=== PATIENT | male | born 1965 | race Caucasian/White ===

== ENCOUNTER 2018-05-28 21:07 | Inpatient (IN) ==
[2018-05-28 21:44] LABS: Basophils # 0.3 10*3/uL (0.0-0.2); Basophils % 1.2 % (0.0-0.8); Eosinophils # 0.6 10*3/uL (0.0-0.87); Eosinophils % 2.5 % (0.00-10.9); Hematocrit 52.3 VOL% (42.0-52.0); Hemoglobin 16.9 GM/DL (14.0-18.0); Immature Granulocytes % 0.6 %; Immature Granulocytes Absolute 0.14 #; Lymphocytes # 3.4 10*3/uL (1.4-4.0); Lymphocytes % 15.2 % (21.2-54.2); Mean Corpuscular HGB Conc 32.3 GM/DL (32-36); Mean Corpuscular Hemoglobin 29 PG (27-34); Mean Corpuscular Volume 89.1 FL (87-102); Monocytes % 4.7 % (1.7-12.7); Neutrophils # 16.9 10*3/uL (1.4-7.4); Neutrophils % 75.8 % (38.7-73.9); Red Blood Count 5.87 MC/CUMM (3.8-5.5); Red Cell Distribution Width 19.6 % (9.3-17.3); White Blood Count 22.4 T/CUMM (4-12)
[2018-05-28 21:50] LABS: Platelet Count 1210 T/CUMM (130-400)
[2018-05-28 21:59] LABS: INR 1.1; PT Patient Result 11.7 SECS; Partial Thromboplastin Time 35.5 SECS (0-40)
[2018-05-28 22:08] LABS: Eosinophils 1 % (0-10); Lymphocytes 16 % (20-55); Platelet Estimate Increased; Segmented Neutrophils 80 % (50-85); Total Cells Counted 100
[2018-05-28 22:11] LABS: Albumin 3.3 G/DL (3.4-5.0); Bilirubin,Total 0.4 MG/DL (0.2-1.0); Calcium 9.4 MG/DL (8.5-10.1); Potassium 3.9 MMOL/L (3.5-5.1); Total Protein 8.1 G/DL (6.4-8.3)
[2018-05-28] MEDS ORDERED: ASPIRIN 325 MG TABLET PO STA (22:19)
[2018-05-28] MEDS ORDERED: MORPHINE 4 MG/1 ML VIAL IV PRN (22:54)
[2018-05-28] MEDS ORDERED: ONDANSETRON 4 MG/2 ML VIAL IV PRN (22:54)
[2018-05-28] MEDS ORDERED: ACETAMINOPHEN 325 MG TABLET PO PRN (22:54)
[2018-05-28] MEDS ORDERED: NICOTINE 21 MG/24 HR PATCH TRANSDERM PRN (22:54)
[2018-05-28] MEDS ORDERED: diphenhydrAMINE CAP 25 MG CAPSULE PO PRN (22:54)
[2018-05-28] MEDS ORDERED: SODIUM CHLORIDE 0.9% 1,000 ML IV SCH (23:00)
[2018-05-29 00:13] LABS: Risk Ratio 7.8; Thyroid Stimulating Hormone 2.86 uIU/ml (0.358-3.74); VLDL CHOLESTEROL 32.6 MG/DL
[2018-05-29 00:44] LABS: Apearance,Urine CLEAR (Clear); Bilirubin,Urine Negative (Negative); Blood, Urine Negative (Negative); Glucose,Urine (UA) Negative (Negative); Ketones,Urine 5 mg/dL (Negative); Mucus,Urine Occasional /LPF (Occasional); Nitrite,Urine Negative (Negative); Protein,Urine Negative; RBC,Urine 1 /HPF (0-4); Urine Color Yellow (Yellow); Urine Specific Gravity 1.024 (1.001-1.035); Urine Urobilinogen < 2.0 EU/DL (0.2-1.0); WBC,Urine 1 /HPF (0-6)
[2018-05-29 02:07] LABS: Barbiturates Screen,Urine Negative (Negative); Benzodiazepines Screen,Urine Negative (Negative); Cannabinoid Screen,Urine Negative (Negative); Opiate Screen,Urine Negative (Negative); Phencyclidine Screen,Urine Negative (Negative)
[2018-05-29 05:07] LABS: Basophils # 0.2 10*3/uL (0.0-0.2); Basophils % 0.9 % (0.0-0.8); Eosinophils # 0.7 10*3/uL (0.0-0.87); Hematocrit 46.9 VOL% (42.0-52.0); Hemoglobin 14.8 GM/DL (14.0-18.0); Immature Granulocytes % 0.8 %; Immature Granulocytes Absolute 0.19 #; Lymphocytes # 3.4 10*3/uL (1.4-4.0); Lymphocytes % 14.7 % (21.2-54.2); Mean Corpuscular HGB Conc 31.6 GM/DL (32-36); Mean Corpuscular Hemoglobin 29 PG (27-34); Mean Corpuscular Volume 90.4 FL (87-102); Mean Platelet Volume 10.6 FL (9.6-12.0); Monocytes # 1.2 10*3/uL (0.11-0.8); Monocytes % 5.2 % (1.7-12.7); Neutrophils # 17.6 10*3/uL (1.4-7.4); Neutrophils % 75.4 % (38.7-73.9); Red Blood Count 5.19 MC/CUMM (3.8-5.5); Red Cell Distribution Width 19.3 % (9.3-17.3); White Blood Count 23.4 T/CUMM (4-12)
[2018-05-29 05:17] LABS: Platelet Count 1235 T/CUMM (130-400)
[2018-05-29 05:22] LABS: Albumin 2.9 G/DL (3.4-5.0); Bilirubin,Total 0.6 MG/DL (0.2-1.0); Calcium 8.8 MG/DL (8.5-10.1); Osmolality,Calculated 282.1 MOS/KG (273-304); Potassium 3.7 MMOL/L (3.5-5.1); Total Protein 7.3 G/DL (6.4-8.3)
[2018-05-29 06:03] LABS: Eosinophils 2 % (0-10); Lymphocytes 11 % (20-55); Platelet Estimate Increased; Polychromasia Few; Segmented Neutrophils 84 % (50-85); Total Cells Counted 100
[2018-05-29] MEDS ORDERED: ATORVASTATIN 40 MG TABLET PO SCH (09:00)
[2018-05-29] MEDS: PANTOPRAZOLE 40 MG TABLET PO SCH (09:46)
[2018-05-29] MEDS: ASPIRIN 325 MG TABLET PO SCH (09:46)
[2018-05-29] MEDS: ENOXAPARIN 40 MG/0.4 ML SYRINGE SUBCUT SCH (09:46)
[2018-05-29] MEDS: FUROSEMIDE 40 MG TABLET PO SCH (16:32)
[2018-05-29] MEDS: FUROSEMIDE 20 MG TABLET PO SCH (16:32)
[2018-05-29] MEDS: CLOPIDOGREL 75 MG TABLET PO SCH (16:32)
[2018-05-29] MEDS: LOSARTAN 25 MG TABLET PO SCH (16:32)
[2018-05-29] MEDS: cefTRIAXone 2,000 MG in SYRINGE 1 EACH IV SCH (16:37)
[2018-05-29] MEDS ORDERED: LISINOPRIL 2.5 MG TABLET PO SCH (21:00)
[2018-05-29] MEDS ORDERED: CARVEDILOL 6.25 MG TABLET PO SCH (21:00)
[2018-05-29] MEDS: POTASSIUM CHLORIDE 20 MEQ TABLET PO SCH (21:37)
[2018-05-30 04:25] LABS: Basophils # 0.2 10*3/uL (0.0-0.2); Eosinophils # 0.7 10*3/uL (0.0-0.87); Eosinophils % 3.3 % (0.00-10.9); Hematocrit 49.1 VOL% (42.0-52.0); Hemoglobin 15.8 GM/DL (14.0-18.0); Immature Granulocytes % 0.6 %; Immature Granulocytes Absolute 0.14 #; Lymphocytes % 13.7 % (21.2-54.2); Mean Corpuscular HGB Conc 32.2 GM/DL (32-36); Mean Corpuscular Hemoglobin 28 PG (27-34); Mean Corpuscular Volume 88.3 FL (87-102); Mean Platelet Volume 10.3 FL (9.6-12.0); Monocytes # 0.9 10*3/uL (0.11-0.8); Monocytes % 4.1 % (1.7-12.7); Neutrophils # 17.1 10*3/uL (1.4-7.4); Neutrophils % 77.3 % (38.7-73.9); Red Blood Count 5.56 MC/CUMM (3.8-5.5); Red Cell Distribution Width 19.2 % (9.3-17.3); White Blood Count 22.1 T/CUMM (4-12)
[2018-05-30 04:33] LABS: Platelet Count 1208 T/CUMM (130-400)
[2018-05-30 04:50] LABS: Bilirubin,Total 0.9 MG/DL (0.2-1.0); Calcium 8.6 MG/DL (8.5-10.1); Osmolality,Calculated 277.4 MOS/KG (273-304); Potassium 3.8 MMOL/L (3.5-5.1); Total Protein 7.3 G/DL (6.4-8.3)
[2018-05-30 05:55] LABS: Hypochromasia 1+; Target Cells Slight
[2018-05-30 05:56] LABS: Howell-Jolly Bodies Slight; Microcytosis 1+; Platelet Estimate Increased
[2018-05-30] MEDS: ATORVASTATIN 40 MG TABLET PO SCH (09:50)
[2018-05-30] MEDS: CLOPIDOGREL 75 MG TABLET PO SCH (09:50)
[2018-05-30] MEDS: POTASSIUM CHLORIDE 20 MEQ TABLET PO SCH ×2 (09:50→21:18)
[2018-05-30] MEDS: PANTOPRAZOLE 40 MG TABLET PO SCH (09:50)
[2018-05-30] MEDS: FUROSEMIDE 40 MG TABLET PO SCH (09:50)
[2018-05-30] MEDS: LOSARTAN 25 MG TABLET PO SCH (09:51)
[2018-05-30] MEDS: ENOXAPARIN 40 MG/0.4 ML SYRINGE SUBCUT SCH (09:51)
[2018-05-30] MEDS: ASPIRIN 325 MG TABLET PO SCH (09:51)
[2018-05-30] MEDS: FUROSEMIDE 20 MG TABLET PO SCH (09:55)
[2018-05-30] MEDS: cefTRIAXone 2,000 MG in SYRINGE 1 EACH IV SCH (14:30)
[2018-05-31 05:10] LABS: Basophils # 0.2 10*3/uL (0.0-0.2); Eosinophils # 0.7 10*3/uL (0.0-0.87); Eosinophils % 2.8 % (0.00-10.9); Hematocrit 47.9 VOL% (42.0-52.0); Hemoglobin 15.5 GM/DL (14.0-18.0); Immature Granulocytes % 0.6 %; Immature Granulocytes Absolute 0.15 #; Lymphocytes # 3.2 10*3/uL (1.4-4.0); Lymphocytes % 13.8 % (21.2-54.2); Mean Corpuscular HGB Conc 32.4 GM/DL (32-36); Mean Corpuscular Hemoglobin 29 PG (27-34); Mean Corpuscular Volume 89.4 FL (87-102); Mean Platelet Volume 10.5 FL (9.6-12.0); Monocytes # 1.2 10*3/uL (0.11-0.8); Monocytes % 5.2 % (1.7-12.7); Neutrophils # 17.8 10*3/uL (1.4-7.4); Neutrophils % 76.6 % (38.7-73.9); Red Blood Count 5.36 MC/CUMM (3.8-5.5); Red Cell Distribution Width 19.4 % (9.3-17.3); White Blood Count 23.3 T/CUMM (4-12)
[2018-05-31 05:24] LABS: Platelet Count 1167 T/CUMM (130-400)
[2018-05-31 05:42] LABS: Alanine Aminotransferase 35 U/L (16-61); Albumin 2.8 G/DL (3.4-5.0); Alkaline Phosphatase 128 U/L (45-117); Aspartate Amino Transferase 22 U/L (0-37); Bilirubin,Total < 0.39 MG/DL (0.2-1.0); Blood Urea Nitrogen 14 MG/DL (7-18); Calcium 8.4 MG/DL (8.5-10.1); Glucose 84 MG/DL (74-106); Osmolality,Calculated 276.5 MOS/KG (273-304); Potassium 3.6 MMOL/L (3.5-5.1); Sodium 139 MMOL/L (136-145); Total Protein 7.3 G/DL (6.4-8.3)
[2018-05-31 06:16] LABS: Anisocytosis 1+; Band Neutrophils 4 % (0-10); Eosinophils 1 % (0-10); Lymphocytes 14 % (20-55); Macrocytosis 1+; Platelet Estimate Increased; Segmented Neutrophils 78 % (50-85); Total Cells Counted 100
[2018-05-31] MEDS: POTASSIUM CHLORIDE 20 MEQ TABLET PO SCH ×2 (08:53→22:31)
[2018-05-31] MEDS: FUROSEMIDE 40 MG TABLET PO SCH (08:53)
[2018-05-31] MEDS: LOSARTAN 25 MG TABLET PO SCH (08:53)
[2018-05-31] MEDS: ATORVASTATIN 40 MG TABLET PO SCH (08:53)
[2018-05-31] MEDS: PANTOPRAZOLE 40 MG TABLET PO SCH (08:53)
[2018-05-31] MEDS ORDERED: CLOPIDOGREL 300 MG TABLET PO ONE (10:36)
[2018-05-31] MEDS: cefTRIAXone 2,000 MG in SYRINGE 1 EACH IV SCH (16:41)
[2018-06-01 04:40] LABS: Basophils # 0.3 10*3/uL (0.0-0.2); Basophils % 1.1 % (0.0-0.8); Eosinophils # 0.7 10*3/uL (0.0-0.87); Hematocrit 49.5 VOL% (42.0-52.0); Immature Granulocytes % 0.6 %; Immature Granulocytes Absolute 0.13 #; Lymphocytes # 3.5 10*3/uL (1.4-4.0); Mean Corpuscular HGB Conc 32.3 GM/DL (32-36); Mean Corpuscular Hemoglobin 29 PG (27-34); Mean Corpuscular Volume 88.1 FL (87-102); Mean Platelet Volume 10.2 FL (9.6-12.0); Monocytes # 1.2 10*3/uL (0.11-0.8); Monocytes % 5.5 % (1.7-12.7); Neutrophils # 16.4 10*3/uL (1.4-7.4); Neutrophils % 73.8 % (38.7-73.9); Red Blood Count 5.62 MC/CUMM (3.8-5.5); Red Cell Distribution Width 19.7 % (9.3-17.3); White Blood Count 22.2 T/CUMM (4-12)
[2018-06-01 04:45] LABS: Platelet Count 1258 T/CUMM (130-400)
[2018-06-01 04:55] LABS: Bilirubin,Total 0.7 MG/DL (0.2-1.0); Calcium 8.6 MG/DL (8.5-10.1); Osmolality,Calculated 277.4 MOS/KG (273-304); Potassium 3.8 MMOL/L (3.5-5.1); Total Protein 7.5 G/DL (6.4-8.3)
[2018-06-01 05:08] LABS: Hypochromasia 1+; Platelet Estimate Increased; Target Cells 2+
[2018-06-01] MEDS: ATORVASTATIN 40 MG TABLET PO SCH (08:55)
[2018-06-01] MEDS: POTASSIUM CHLORIDE 20 MEQ TABLET PO SCH ×2 (08:55→20:26)
[2018-06-01] MEDS: LOSARTAN 25 MG TABLET PO SCH (08:55)
[2018-06-01] MEDS: PANTOPRAZOLE 40 MG TABLET PO SCH (08:55)
[2018-06-01] MEDS: FUROSEMIDE 40 MG TABLET PO SCH ×2 (08:55→10:11)
[2018-06-01] MEDS ORDERED: LIDOCAINE 1% 20 ML VIAL ONE (10:56)
[2018-06-01] MEDS ORDERED: HEPARIN 5,000 UNIT/1 ML VIAL ONE (10:56)
[2018-06-01] MEDS ORDERED: ONDANSETRON 4 MG/2 ML VIAL IV PRN (13:12)
[2018-06-01] MEDS ORDERED: HYDROmorphone 2 MG/1 ML VIAL IV PRN (13:12)
[2018-06-01] MEDS ORDERED: oxyCODONE/ACETAMINOPHEN 5-325 MG TABLET PO PRN (13:12)
[2018-06-01] MEDS ORDERED: DEXTROSE 50% 25 GM/50 ML SYRINGE IV PRN (13:12)
[2018-06-01] MEDS ORDERED: NALOXONE 0.4 MG/ML VIAL IV PRN (13:12)
[2018-06-01] MEDS ORDERED: PROMETHAZINE 25 MG/1 ML VIAL IM PRN (13:12)
[2018-06-01] MEDS ORDERED: GLUCAGON 1 MG VIAL IM PRN (13:12)
[2018-06-01] MEDS ORDERED: MIDAZOLAM 2 MG/2 ML VIAL ONE (13:30)
[2018-06-01] MEDS ORDERED: PROPOFOL 200 MG/20 ML VIAL IV ONE (13:30)
[2018-06-01] MEDS ORDERED: ASPIRIN EC 81 MG TABLET PO SCH (13:30)
[2018-06-01] MEDS ORDERED: fentaNYL 100 MCG/2 ML VIAL ONE (13:30)
[2018-06-01] MEDS ORDERED: ETOMIDATE 40 MG/20 ML VIAL IV ONE (13:30)
[2018-06-01] MEDS ORDERED: ePHEDrine 50 MG/ML AMP ONE (13:31)
[2018-06-01] MEDS ORDERED: ONDANSETRON 4 MG/2 ML VIAL ONE (13:31)
[2018-06-01] MEDS ORDERED: ROCURONIUM 100 MG/10 ML VIAL IV ONE (13:31)
[2018-06-01] MEDS ORDERED: PROTAMINE SULFATE 50 MG/5 ML VIAL IV ONE (13:32)
[2018-06-01] MEDS ORDERED: HEPARIN 10,000 UNIT/10 ML VIAL ONE (13:32)
[2018-06-01] MEDS ORDERED: NEOSTIGMINE 10 MG/10 ML VIAL ONE (13:32)
[2018-06-01] MEDS ORDERED: GLYCOPYRROLATE 0.4 MG/2 ML VIAL ONE (13:32)
[2018-06-01] MEDS ORDERED: SEVOFLURANE 1 UNIT/15 MINUTE INH ONE (13:33)
[2018-06-01] MEDS: PHENYLEPHRINE DRIP 40 MG/250 ML PREMIX IV SCH (13:53)
[2018-06-01] MEDS: NITROPRUSSIDE 100 MG in DEXTROSE 5% 250 ML IV SCH (15:53)
[2018-06-01] MEDS: CLOPIDOGREL 75 MG TABLET PO SCH (15:53)
[2018-06-01] MEDS: ASPIRIN EC 81 MG TABLET PO SCH (15:53)
[2018-06-01] MEDS: LACTATED RINGERS 1,000 ML IV SCH (15:53)
[2018-06-01] MEDS: cefTRIAXone 2,000 MG in SYRINGE 1 EACH IV SCH (15:54)
[2018-06-01] MEDS: oxyCODONE/ACETAMINOPHEN 5-325 MG TABLET PO PRN (17:32)
[2018-06-01] MEDS: HYDROmorphone 2 MG/1 ML VIAL IV PRN (18:00)
[2018-06-02] MEDS: HYDROmorphone 2 MG/1 ML VIAL IV PRN ×3 (00:10→22:31)
[2018-06-02 04:46] LABS: Basophils # 0.2 10*3/uL (0.0-0.2); Basophils % 0.6 % (0.0-0.8); Eosinophils # 0.1 10*3/uL (0.0-0.87); Eosinophils % 0.2 % (0.00-10.9); Hematocrit 46.8 VOL% (42.0-52.0); Hemoglobin 15.2 GM/DL (14.0-18.0); Immature Granulocytes % 0.8 %; Immature Granulocytes Absolute 0.25 #; Lymphocytes # 1.5 10*3/uL (1.4-4.0); Lymphocytes % 5.2 % (21.2-54.2); Mean Corpuscular HGB Conc 32.5 GM/DL (32-36); Mean Corpuscular Hemoglobin 29 PG (27-34); Mean Corpuscular Volume 89.5 FL (87-102); Monocytes # 1.5 10*3/uL (0.11-0.8); Monocytes % 5.2 % (1.7-12.7); Neutrophils # 25.9 10*3/uL (1.4-7.4); Red Blood Count 5.23 MC/CUMM (3.8-5.5); Red Cell Distribution Width 19.7 % (9.3-17.3); White Blood Count 29.5 T/CUMM (4-12)
[2018-06-02 04:48] LABS: Platelet Count 1135 T/CUMM (130-400)
[2018-06-02 05:12] LABS: Lymphocytes 2 % (20-55); Segmented Neutrophils 95 % (50-85); Total Cells Counted 100
[2018-06-02 05:13] LABS: Hypochromasia Slight; Platelet Estimate Increased; Polychromasia Few
[2018-06-02 05:17] LABS: Albumin 2.9 G/DL (3.4-5.0); Bilirubin,Total 0.8 MG/DL (0.2-1.0); Calcium 8.6 MG/DL (8.5-10.1); Osmolality,Calculated 273.7 MOS/KG (273-304); Potassium 4.3 MMOL/L (3.5-5.1); Total Protein 7.2 G/DL (6.4-8.3)
[2018-06-02] MEDS ORDERED: HEPARIN 5,000 UNIT/1 ML VIAL ONE (07:53)
[2018-06-02] MEDS ORDERED: ceFAZolin 1,000 MG in SYRINGE 1 EACH IV ONE (08:00)
[2018-06-02] MEDS ORDERED: SEVOFLURANE 1 UNIT/15 MINUTE INH ONE (09:44)
[2018-06-02] MEDS ORDERED: PROPOFOL 200 MG/20 ML VIAL IV ONE (09:44)
[2018-06-02] MEDS ORDERED: MIDAZOLAM 2 MG/2 ML VIAL ONE (09:45)
[2018-06-02] MEDS ORDERED: ONDANSETRON 4 MG/2 ML VIAL ONE (09:45)
[2018-06-02] MEDS ORDERED: ROCURONIUM 100 MG/10 ML VIAL IV ONE (09:45)
[2018-06-02] MEDS ORDERED: SUCCINYLCHOLINE 200 MG/10 ML VIAL ONE (09:45)
[2018-06-02] MEDS ORDERED: DEXAMETHASONE 20 MG/5 ML VIAL ONE (09:45)
[2018-06-02] MEDS ORDERED: ETOMIDATE 40 MG/20 ML VIAL IV ONE (09:45)
[2018-06-02] MEDS ORDERED: PHENYLEPHRINE 1 MG/10 ML SYRINGE IV ONE (09:45)
[2018-06-02] MEDS ORDERED: MAGNESIUM SULF RIDER 2 GM in PREMIX 1 EACH IV PRN (11:02)
[2018-06-02] MEDS ORDERED: MAGNESIUM SULF RIDER 4 GM in PREMIX 1 EACH IV PRN (11:02)
[2018-06-02] MEDS: ASPIRIN EC 81 MG TABLET PO SCH (11:06)
[2018-06-02] MEDS: ATORVASTATIN 40 MG TABLET PO SCH (11:19)
[2018-06-02] MEDS: PANTOPRAZOLE 40 MG TABLET PO SCH (11:19)
[2018-06-02] MEDS: CLOPIDOGREL 75 MG TABLET PO SCH (11:19)
[2018-06-02] MEDS: POTASSIUM CHLORIDE 20 MEQ TABLET PO SCH ×2 (11:19→20:07)
[2018-06-02] MEDS: FUROSEMIDE 40 MG TABLET PO SCH (11:20)
[2018-06-02] MEDS: LOSARTAN 25 MG TABLET PO SCH (11:20)
[2018-06-02] MEDS: LACTATED RINGERS 1,000 ML IV SCH ×2 (13:17)
[2018-06-02] MEDS: PHENYLEPHRINE DRIP 40 MG/250 ML PREMIX IV SCH (13:44)
[2018-06-02] MEDS: NITROPRUSSIDE 100 MG in DEXTROSE 5% 250 ML IV SCH (13:45)
[2018-06-02 16:29] LABS: Apearance,Urine CLEAR (Clear); Bilirubin,Urine Negative (Negative); Blood, Urine Negative (Negative); Glucose,Urine (UA) Negative (Negative); Ketones,Urine 5 mg/dL (Negative); Nitrite,Urine Negative (Negative); Protein,Urine Negative; RBC,Urine <1 /HPF (0-4); Urine Color Straw (Yellow); Urine Specific Gravity 1.005 (1.001-1.035); Urine Urobilinogen < 2.0 EU/DL (0.2-1.0); WBC,Urine <1 /HPF (0-6)
[2018-06-03 04:22] LABS: Basophils # 0.1 10*3/uL (0.0-0.2); Basophils % 0.4 % (0.0-0.8); Hematocrit 44.9 VOL% (42.0-52.0); Hemoglobin 14.7 GM/DL (14.0-18.0); Immature Granulocytes Absolute 0.36 #; Lymphocytes # 1.1 10*3/uL (1.4-4.0); Lymphocytes % 3.2 % (21.2-54.2); Mean Corpuscular HGB Conc 32.7 GM/DL (32-36); Mean Corpuscular Hemoglobin 29 PG (27-34); Mean Corpuscular Volume 89.3 FL (87-102); Mean Platelet Volume 10.2 FL (9.6-12.0); Monocytes # 1.4 10*3/uL (0.11-0.8); Neutrophils # 32.8 10*3/uL (1.4-7.4); Neutrophils % 91.4 % (38.7-73.9); Red Blood Count 5.03 MC/CUMM (3.8-5.5); Red Cell Distribution Width 19.1 % (9.3-17.3); White Blood Count 35.8 T/CUMM (4-12)
[2018-06-03 04:25] LABS: Platelet Count 1131 T/CUMM (130-400)
[2018-06-03 04:47] LABS: Calcium 8.8 MG/DL (8.5-10.1); Osmolality,Calculated 275.5 MOS/KG (273-304); Potassium 4.2 MMOL/L (3.5-5.1)
[2018-06-03 04:55] LABS: Lymphocytes 3 % (20-55); Platelet Estimate Increased; Polychromasia Few; Segmented Neutrophils 95 % (50-85); Total Cells Counted 100
[2018-06-03] MEDS: ATORVASTATIN 40 MG TABLET PO SCH (08:58)
[2018-06-03] MEDS: CLOPIDOGREL 75 MG TABLET PO SCH (08:58)
[2018-06-03] MEDS: ASPIRIN EC 81 MG TABLET PO SCH (08:58)
[2018-06-03] MEDS: POTASSIUM CHLORIDE 20 MEQ TABLET PO SCH ×2 (08:59→20:04)
[2018-06-03] MEDS: LOSARTAN 25 MG TABLET PO SCH (08:59)
[2018-06-03] MEDS: PANTOPRAZOLE 40 MG TABLET PO SCH (08:59)
[2018-06-03] MEDS ORDERED: APIXABAN 5 MG TABLET PO SCH (09:00)
[2018-06-03] MEDS: FUROSEMIDE 40 MG TABLET PO SCH (09:00)
[2018-06-03] MEDS: LACTATED RINGERS 1,000 ML IV SCH (09:27)
[2018-06-03] MEDS: PHENYLEPHRINE DRIP 40 MG/250 ML PREMIX IV SCH (12:42)
[2018-06-03] MEDS: NITROPRUSSIDE 100 MG in DEXTROSE 5% 250 ML IV SCH (12:42)
[2018-06-03] MEDS: oxyCODONE/ACETAMINOPHEN 5-325 MG TABLET PO PRN (20:04)
[2018-06-03] MEDS ORDERED: ATORVASTATIN 40 MG TABLET PO SCH (21:00)
[2018-06-04] MEDS: HYDROmorphone 2 MG/1 ML VIAL IV PRN (00:44)
[2018-06-04 04:36] LABS: Basophils # 0.2 10*3/uL (0.0-0.2); Basophils % 0.6 % (0.0-0.8); Eosinophils # 0.5 10*3/uL (0.0-0.87); Eosinophils % 1.8 % (0.00-10.9); Hemoglobin 14.4 GM/DL (14.0-18.0); Immature Granulocytes % 0.8 %; Immature Granulocytes Absolute 0.22 #; Lymphocytes # 3.3 10*3/uL (1.4-4.0); Lymphocytes % 11.4 % (21.2-54.2); Mean Corpuscular HGB Conc 31.3 GM/DL (32-36); Mean Corpuscular Hemoglobin 28 PG (27-34); Mean Corpuscular Volume 90.6 FL (87-102); Mean Platelet Volume 10.7 FL (9.6-12.0); Monocytes # 1.5 10*3/uL (0.11-0.8); Monocytes % 5.2 % (1.7-12.7); Neutrophils # 23.4 10*3/uL (1.4-7.4); Neutrophils % 80.2 % (38.7-73.9); Red Blood Count 5.08 MC/CUMM (3.8-5.5); Red Cell Distribution Width 19.4 % (9.3-17.3); White Blood Count 29.2 T/CUMM (4-12)
[2018-06-04 04:44] LABS: Platelet Count 1187 T/CUMM (130-400)
[2018-06-04 04:55] LABS: Calcium 8.7 MG/DL (8.5-10.1); Osmolality,Calculated 278.4 MOS/KG (273-304); Potassium 3.7 MMOL/L (3.5-5.1)
[2018-06-04 05:06] LABS: Calcium 8.2 MG/DL (8.5-10.1); Osmolality,Calculated 280.3 MOS/KG (273-304); Potassium 3.6 MMOL/L (3.5-5.1)
[2018-06-04 05:22] LABS: Giant Platelets Few; Hypochromasia 1+; Platelet Estimate Increased
[2018-06-04] MEDS ORDERED: CLOPIDOGREL 75 MG TABLET PO SCH (09:30)
[2018-06-04] MEDS: FUROSEMIDE 40 MG TABLET PO SCH (11:58)
[2018-06-04] MEDS: POTASSIUM CHLORIDE 20 MEQ TABLET PO SCH (11:59)
[2018-06-04] MEDS: LOSARTAN 25 MG TABLET PO SCH (11:59)
[2018-06-04] MEDS: ATORVASTATIN 40 MG TABLET PO SCH (11:59)
[2018-06-04] MEDS: PANTOPRAZOLE 40 MG TABLET PO SCH (11:59)
[2018-06-04] MEDS ORDERED: MAGNESIUM OXIDE 400 MG TABLET PO SCH (12:00)
[2018-06-04] MEDS: ASPIRIN EC 81 MG TABLET PO SCH (12:28)
[2018-06-04 12:51] VITALS: BP 117/72
== END 2018-06-04 15:31 | disposition home or self-care (01) | DRG 38 ==
LOC: N.ED 21:07 → N.EDINP 22:26 → N.TELES 23:45 → N.ICU 06-01 13:35 → N.4E 06-03 13:12
PROVIDERS: ADMIT Internal Medicine; ATTEND Internal Medicine

== ENCOUNTER 2018-06-06 14:20 | Inpatient (IN) ==
[2018-06-06 15:23] LABS: Basophils # 0.2 10*3/uL (0.0-0.2); Basophils % 0.7 % (0.0-0.8); Eosinophils # 0.5 10*3/uL (0.0-0.87); Eosinophils % 1.7 % (0.00-10.9); Hematocrit 48.6 VOL% (42.0-52.0); Hemoglobin 15.8 GM/DL (14.0-18.0); Immature Granulocytes % 0.7 %; Immature Granulocytes Absolute 0.19 #; Lymphocytes # 2.3 10*3/uL (1.4-4.0); Lymphocytes % 7.9 % (21.2-54.2); Mean Corpuscular HGB Conc 32.5 GM/DL (32-36); Mean Corpuscular Hemoglobin 29 PG (27-34); Mean Corpuscular Volume 88.7 FL (87-102); Monocytes # 1.4 10*3/uL (0.11-0.8); Monocytes % 4.7 % (1.7-12.7); Neutrophils # 24.5 10*3/uL (1.4-7.4); Neutrophils % 84.3 % (38.7-73.9); Red Blood Count 5.48 MC/CUMM (3.8-5.5); Red Cell Distribution Width 19.2 % (9.3-17.3)
[2018-06-06 15:28] LABS: Platelet Count 1292 T/CUMM (130-400)
[2018-06-06] MEDS ORDERED: ceFAZolin 2,000 MG in SYRINGE 1 EACH IV ONE (15:29)
[2018-06-06 15:32] LABS: INR 1.1; PT Patient Result 11.8 SECS
[2018-06-06] MEDS ORDERED: HEPARIN 5,000 UNIT/1 ML VIAL ONE (15:40)
[2018-06-06 15:42] LABS: Calcium 9.1 MG/DL (8.5-10.1); Osmolality,Calculated 275.5 MOS/KG (273-304); Potassium 4.2 MMOL/L (3.5-5.1)
[2018-06-06] MEDS ORDERED: GLUCAGON 1 MG VIAL IM PRN (16:54)
[2018-06-06] MEDS ORDERED: NALOXONE 0.4 MG/ML VIAL IV PRN (16:54)
[2018-06-06] MEDS ORDERED: oxyCODONE/ACETAMINOPHEN 5-325 MG TABLET PO PRN ×3 (16:54→16:59)
[2018-06-06] MEDS ORDERED: PROMETHAZINE 25 MG/1 ML VIAL IM PRN (16:54)
[2018-06-06] MEDS ORDERED: ONDANSETRON 4 MG/2 ML VIAL IV PRN ×2 (16:54→17:26)
[2018-06-06] MEDS ORDERED: DEXTROSE 50% 25 GM/50 ML VIAL IV PRN (16:54)
[2018-06-06] MEDS ORDERED: diphenhydrAMINE CAP 25 MG CAPSULE PO PRN (16:59)
[2018-06-06] MEDS ORDERED: NICOTINE 21 MG/24 HR PATCH TRANSDERM PRN (16:59)
[2018-06-06] MEDS ORDERED: PHENYLEPHRINE DRIP 40 MG/250 ML PREMIX IV SCH (17:00)
[2018-06-06] MEDS ORDERED: NITROPRUSSIDE 100 MG in DEXTROSE 5% 250 ML IV SCH (17:00)
[2018-06-06] MEDS: HYDROmorphone 2 MG/1 ML VIAL IV PRN ×3 (17:30→23:16)
[2018-06-06 18:06] LABS: Eosinophils 2 % (0-10); Lymphocytes 6 % (20-55); Platelet Estimate Increased; Segmented Neutrophils 84 % (50-85); Total Cells Counted 100
[2018-06-06] MEDS: LACTATED RINGERS 1,000 ML IV SCH (19:15)
[2018-06-06] MEDS: ATORVASTATIN 40 MG TABLET PO SCH (20:36)
[2018-06-06] MEDS: POTASSIUM CHLORIDE 20 MEQ TABLET PO SCH (20:36)
[2018-06-06] MEDS: MAGNESIUM OXIDE 400 MG TABLET PO SCH (20:37)
[2018-06-06] MEDS ORDERED: PROPOFOL 200 MG/20 ML VIAL IV ONE (21:10)
[2018-06-06] MEDS ORDERED: fentaNYL 100 MCG/2 ML VIAL ONE (21:11)
[2018-06-06] MEDS ORDERED: SEVOFLURANE 1 UNIT/15 MINUTE INH ONE (21:11)
[2018-06-06] MEDS ORDERED: ETOMIDATE 40 MG/20 ML VIAL IV ONE (21:11)
[2018-06-06] MEDS ORDERED: MIDAZOLAM 2 MG/2 ML VIAL ONE (21:11)
[2018-06-06] MEDS ORDERED: DEXAMETHASONE 10 MG/1 ML VIAL ONE (21:12)
[2018-06-06] MEDS ORDERED: SUCCINYLCHOLINE 200 MG/10 ML VIAL ONE (21:12)
[2018-06-07] MEDS: LACTATED RINGERS 1,000 ML IV SCH ×2 (01:00→03:02)
[2018-06-07] MEDS: HYDROmorphone 2 MG/1 ML VIAL IV PRN ×3 (04:54→23:13)
[2018-06-07] MEDS ORDERED: FUROSEMIDE 20 MG TABLET PO SCH (08:00)
[2018-06-07] MEDS: LOSARTAN 25 MG TABLET PO SCH (10:14)
[2018-06-07] MEDS: MAGNESIUM OXIDE 400 MG TABLET PO SCH ×2 (10:14→20:39)
[2018-06-07] MEDS: POTASSIUM CHLORIDE 20 MEQ TABLET PO SCH ×2 (10:14→20:39)
[2018-06-07] MEDS: CLOPIDOGREL 75 MG TABLET PO SCH (12:25)
[2018-06-07] MEDS: ATORVASTATIN 40 MG TABLET PO SCH (20:39)
[2018-06-08] MEDS ORDERED: NEBIVOLOL 5 MG TABLET PO SCH (09:00)
[2018-06-08] MEDS: CLOPIDOGREL 75 MG TABLET PO SCH (09:36)
[2018-06-08] MEDS: LOSARTAN 25 MG TABLET PO SCH (09:36)
[2018-06-08] MEDS: MAGNESIUM OXIDE 400 MG TABLET PO SCH (09:37)
[2018-06-08] MEDS: POTASSIUM CHLORIDE 20 MEQ TABLET PO SCH (09:37)
[2018-06-08 11:44] VITALS: BP 98/55
== END 2018-06-08 16:00 | disposition home or self-care (01) | DRG 908 ==
LOC: N.ED 14:20 → N.3E 16:08 → N.EDINP 16:54 → N.3E 18:21
PROVIDERS: ADMIT Surgery; ATTEND Surgery

== ENCOUNTER 2019-06-01 08:23 | Inpatient (IN) ==
[2019-06-01 08:49] LABS: Basophils # 0.3 10*3/uL (0.0-0.2); Basophils % 1.1 % (0.0-0.8); Eosinophils # 0.7 10*3/uL (0.0-0.87); Eosinophils % 2.7 % (0.00-10.9); Hematocrit 51.6 VOL% (42.0-52.0); Hemoglobin 17.3 GM/DL (14.0-18.0); Immature Granulocytes % 0.5 %; Immature Granulocytes Absolute 0.12 #; Lymphocytes # 3.1 10*3/uL (1.4-4.0); Lymphocytes % 12.6 % (21.2-54.2); Mean Corpuscular HGB Conc 33.5 GM/DL (32-36); Monocytes % 5.3 % (1.7-12.7); Neutrophils % 77.8 % (38.7-73.9); Red Cell Distribution Width 19.9 % (9.3-17.3); White Blood Count 24.8 T/CUMM (4-12)
[2019-06-01 09:00] LABS: Platelet Count 1187 T/CUMM (130-400)
[2019-06-01 09:15] LABS: Eosinophils 3 % (0-10); Hypochromasia 1+; Lymphocytes 8 % (20-55); Platelet Estimate Increased; Segmented Neutrophils 85 % (50-85); Total Cells Counted 100
[2019-06-01 09:16] LABS: Microcytosis Slight
[2019-06-01 09:19] LABS: Albumin 3.4 G/DL (3.4-5.0); Bilirubin,Total 1.2 MG/DL (0.2-1.0); Calcium 9.8 MG/DL (8.5-10.1); Osmolality,Calculated 276.1 MOS/KG (273-304); Total Protein 7.8 G/DL (6.4-8.3)
[2019-06-01] MEDS ORDERED: SODIUM CHLORIDE 0.9% 250 ML IV STA (10:15)
[2019-06-01] MEDS ORDERED: METOPROLOL TARTRATE 25 MG TABLET ONE (10:17)
[2019-06-01] MEDS ORDERED: MORPHINE 4 MG/1 ML VIAL IV PRN (10:34)
[2019-06-01] MEDS ORDERED: METOPROLOL TARTRATE 25 MG TABLET PO STA (10:58)
[2019-06-01] MEDS ORDERED: MAGNESIUM SULF RIDER 2 GM in PREMIX 1 EACH IV ONE (11:09)
[2019-06-01] MEDS ORDERED: POTASSIUM CHLORIDE 20 MEQ TABLET PO ONE (11:09)
[2019-06-01] MEDS ORDERED: AMIODARONE INJ 450 MG in DEXTROSE 5% 241 ML IV SCH (11:30)
[2019-06-01] MEDS: ENOXAPARIN 40 MG/0.4 ML SYRINGE SUBCUT SCH (12:05)
[2019-06-01] MEDS: MAGNESIUM CHLORIDE 64 MG TABLET PO SCH ×2 (12:56→20:57)
[2019-06-01 16:44] LABS: Barbiturates Screen,Urine Negative (Negative); Benzodiazepines Screen,Urine Negative (Negative); Cannabinoid Screen,Urine Negative (Negative); Opiate Screen,Urine Negative (Negative); Phencyclidine Screen,Urine Negative (Negative)
[2019-06-01] MEDS: AMIODARONE INJ 450 MG in DEXTROSE 5% 241 ML IV SCH (19:00)
[2019-06-01] MEDS: SACUBITRIL/VALSARTAN 49-51 MG TABLET PO SCH (20:56)
[2019-06-01] MEDS: METOPROLOL TARTRATE 25 MG TABLET PO SCH (20:56)
[2019-06-02 05:59] LABS: Hematocrit 52.7 VOL% (42.0-52.0); Hemoglobin 17.4 GM/DL (14.0-18.0); Mean Corpuscular Volume 89.2 FL (87-102); Red Blood Count 5.91 MC/CUMM (3.8-5.5); Red Cell Distribution Width 19.9 % (9.3-17.3); White Blood Count 26.4 T/CUMM (4-12)
[2019-06-02 06:00] LABS: Basophils # 0.3 10*3/uL (0.0-0.2); Eosinophils # 0.7 10*3/uL (0.0-0.87); Eosinophils % 2.6 % (0.00-10.9); Immature Granulocytes % 0.5 %; Immature Granulocytes Absolute 0.14 #; Lymphocytes # 3.2 10*3/uL (1.4-4.0); Mean Platelet Volume 10.2 FL (9.6-12.0); Monocytes % 5.2 % (1.7-12.7); Neutrophils % 78.7 % (38.7-73.9)
[2019-06-02 06:02] LABS: Platelet Count 1185 T/CUMM (130-400)
[2019-06-02 06:19] LABS: Eosinophils 6 % (0-10); Hypochromasia 1+; Lymphocytes 8 % (20-55); Microcytosis Slight; Platelet Estimate Increased; Segmented Neutrophils 83 % (50-85); Total Cells Counted 100
[2019-06-02 06:29] LABS: Bilirubin,Total 1.8 MG/DL (0.2-1.0); Risk Ratio 7.3; Thyroid Stimulating Hormone 2.41 uIU/ml (0.358-3.74); Total Protein 7.8 G/DL (6.4-8.3); VLDL CHOLESTEROL 20.8 MG/DL
[2019-06-02] MEDS: MAGNESIUM CHLORIDE 64 MG TABLET PO SCH ×2 (08:53→21:57)
[2019-06-02] MEDS: metOLazone 2.5 MG TABLET PO SCH (08:53)
[2019-06-02] MEDS: SACUBITRIL/VALSARTAN 49-51 MG TABLET PO SCH ×2 (08:53→21:57)
[2019-06-02] MEDS: METOPROLOL TARTRATE 25 MG TABLET PO SCH ×2 (08:53→22:21)
[2019-06-02] MEDS: FUROSEMIDE 40 MG TABLET PO SCH (08:54)
[2019-06-02] MEDS: PANTOPRAZOLE 40 MG TABLET PO SCH (08:54)
[2019-06-02] MEDS: POTASSIUM CHLORIDE 20 MEQ TABLET PO SCH ×3 (08:54→21:57)
[2019-06-02] MEDS: CLOPIDOGREL 75 MG TABLET PO SCH (08:54)
[2019-06-02] MEDS ORDERED: ATORVASTATIN 40 MG TABLET PO SCH (09:00)
[2019-06-02] MEDS ORDERED: POTASSIUM CHLORIDE 20 MEQ TABLET PO SCH (09:00)
[2019-06-02] MEDS ORDERED: LOSARTAN 25 MG TABLET PO SCH (09:00)
[2019-06-02] MEDS: ENOXAPARIN 40 MG/0.4 ML SYRINGE SUBCUT SCH (12:40)
[2019-06-02] MEDS: ASPIRIN EC 81 MG TABLET PO SCH (14:57)
[2019-06-02] MEDS: AMIODARONE INJ 450 MG in DEXTROSE 5% 241 ML IV SCH ×2 (14:58→23:00)
[2019-06-03 06:12] LABS: Basophils # 0.3 10*3/uL (0.0-0.2); Basophils % 1.1 % (0.0-0.8); Eosinophils # 0.9 10*3/uL (0.0-0.87); Eosinophils % 3.2 % (0.00-10.9); Hematocrit 52.9 VOL% (42.0-52.0); Hemoglobin 17.3 GM/DL (14.0-18.0); Immature Granulocytes % 0.8 %; Immature Granulocytes Absolute 0.21 #; Lymphocytes # 2.4 10*3/uL (1.4-4.0); Lymphocytes % 9.2 % (21.2-54.2); Mean Corpuscular HGB Conc 32.7 GM/DL (32-36); Mean Corpuscular Volume 90.6 FL (87-102); Mean Platelet Volume 10.1 FL (9.6-12.0); Monocytes % 5.2 % (1.7-12.7); Neutrophils % 80.5 % (38.7-73.9); Red Blood Count 5.84 MC/CUMM (3.8-5.5); Red Cell Distribution Width 19.9 % (9.3-17.3); White Blood Count 26.4 T/CUMM (4-12)
[2019-06-03 06:15] LABS: Platelet Count 1164 T/CUMM (130-400)
[2019-06-03 06:32] LABS: Albumin 3.2 G/DL (3.4-5.0); Bilirubin,Total 0.7 MG/DL (0.2-1.0); Calcium 8.7 MG/DL (8.5-10.1); Osmolality,Calculated 286.4 MOS/KG (273-304); Total Protein 8.1 G/DL (6.4-8.3)
[2019-06-03] MEDS: SODIUM CHLORIDE 0.45% 1,000 ML IV SCH ×2 (06:45→23:55)
[2019-06-03 06:49] LABS: Band Neutrophils 4 % (0-10); Eosinophils 2 % (0-10); Lymphocytes 6 % (20-55); Platelet Estimate Increased; Segmented Neutrophils 84 % (50-85); Total Cells Counted 100
[2019-06-03 06:50] LABS: Hypochromasia 2+; Target Cells 2+
[2019-06-03] MEDS ORDERED: diphenhydrAMINE CAP 25 MG CAPSULE PO ONE (07:00)
[2019-06-03] MEDS ORDERED: DIAZEPAM 5 MG TABLET PO ONE (07:00)
[2019-06-03] MEDS ORDERED: LIDOCAINE 1% 20 ML VIAL ONE (07:14)
[2019-06-03] MEDS ORDERED: NITROGLYCERIN DRIP 50 MG/250 ML BOTTLE IV ONE (07:20)
[2019-06-03] MEDS ORDERED: fentaNYL 100 MCG/2 ML VIAL ONE (07:21)
[2019-06-03] MEDS ORDERED: MIDAZOLAM 2 MG/2 ML VIAL ONE ×2 (07:21→07:35)
[2019-06-03] MEDS ORDERED: VERAPAMIL 5 MG/2 ML VIAL ONE (07:21)
[2019-06-03] MEDS ORDERED: ENOXAPARIN 30 MG/0.3 ML SYRINGE ONE (07:40)
[2019-06-03] MEDS ORDERED: POTASSIUM CHLORIDE RIDER 10 MEQ in PREMIX 1 EACH IV PRN (08:00)
[2019-06-03] MEDS ORDERED: MAGNESIUM SULF RIDER 2 GM in PREMIX 1 EACH IV PRN (08:00)
[2019-06-03] MEDS: metOLazone 2.5 MG TABLET PO SCH (08:33)
[2019-06-03] MEDS: METOPROLOL TARTRATE 25 MG TABLET PO SCH ×2 (08:33→21:55)
[2019-06-03] MEDS: FUROSEMIDE 40 MG TABLET PO SCH (08:33)
[2019-06-03] MEDS: SACUBITRIL/VALSARTAN 49-51 MG TABLET PO SCH ×2 (08:33→21:55)
[2019-06-03] MEDS: ROSUVASTATIN 20 MG TABLET PO SCH (08:53)
[2019-06-03] MEDS: PANTOPRAZOLE 40 MG TABLET PO SCH (08:53)
[2019-06-03] MEDS: ASPIRIN EC 81 MG TABLET PO SCH (08:53)
[2019-06-03] MEDS: MAGNESIUM CHLORIDE 64 MG TABLET PO SCH ×2 (08:53→21:55)
[2019-06-03] MEDS: CLOPIDOGREL 75 MG TABLET PO SCH (08:54)
[2019-06-03] MEDS: POTASSIUM CHLORIDE 20 MEQ TABLET PO SCH ×3 (08:54→21:56)
[2019-06-03] MEDS: ENOXAPARIN 40 MG/0.4 ML SYRINGE SUBCUT SCH (12:37)
[2019-06-03] MEDS: AMIODARONE 200 MG TABLET PO SCH ×2 (12:37→21:56)
[2019-06-04 05:23] LABS: Basophils # 0.3 10*3/uL (0.0-0.2); Eosinophils # 0.7 10*3/uL (0.0-0.87); Eosinophils % 2.7 % (0.00-10.9); Hematocrit 50.2 VOL% (42.0-52.0); Hemoglobin 16.4 GM/DL (14.0-18.0); Immature Granulocytes % 0.9 %; Immature Granulocytes Absolute 0.23 #; Lymphocytes # 2.1 10*3/uL (1.4-4.0); Mean Corpuscular HGB Conc 32.7 GM/DL (32-36); Mean Corpuscular Volume 90.8 FL (87-102); Mean Platelet Volume 10.1 FL (9.6-12.0); Neutrophils % 82.4 % (38.7-73.9); Red Blood Count 5.53 MC/CUMM (3.8-5.5); Red Cell Distribution Width 19.8 % (9.3-17.3); White Blood Count 25.9 T/CUMM (4-12)
[2019-06-04 06:06] LABS: Calcium 8.2 MG/DL (8.5-10.1); Osmolality,Calculated 281.4 MOS/KG (273-304)
[2019-06-04 06:13] LABS: Albumin 2.9 G/DL (3.4-5.0); Bilirubin,Total 0.8 MG/DL (0.2-1.0); Osmolality,Calculated 282.4 MOS/KG (273-304); Total Protein 7.1 G/DL (6.4-8.3)
[2019-06-04 06:21] LABS: Platelet Count 1119 T/CUMM (130-400)
[2019-06-04 06:23] LABS: Eosinophils 7 % (0-10); Lymphocytes 2 % (20-55); Platelet Estimate Increased; Segmented Neutrophils 85 % (50-85); Total Cells Counted 100
[2019-06-04] MEDS: ASPIRIN EC 81 MG TABLET PO SCH (09:08)
[2019-06-04] MEDS: ROSUVASTATIN 20 MG TABLET PO SCH (09:08)
[2019-06-04] MEDS: POTASSIUM CHLORIDE 20 MEQ TABLET PO SCH ×3 (09:08→21:55)
[2019-06-04] MEDS: FUROSEMIDE 40 MG TABLET PO SCH (09:08)
[2019-06-04] MEDS: AMIODARONE 200 MG TABLET PO SCH ×2 (09:09→21:53)
[2019-06-04] MEDS: MAGNESIUM CHLORIDE 64 MG TABLET PO SCH ×2 (09:09→21:55)
[2019-06-04] MEDS: CLOPIDOGREL 75 MG TABLET PO SCH (09:09)
[2019-06-04] MEDS: METOPROLOL TARTRATE 25 MG TABLET PO SCH ×2 (09:09→21:54)
[2019-06-04] MEDS: PANTOPRAZOLE 40 MG TABLET PO SCH (09:09)
[2019-06-04] MEDS: metOLazone 2.5 MG TABLET PO SCH (09:09)
[2019-06-04] MEDS: SODIUM CHLORIDE 0.45% 1,000 ML IV SCH (09:12)
[2019-06-04] MEDS: SACUBITRIL/VALSARTAN 49-51 MG TABLET PO SCH ×2 (09:30→21:54)
[2019-06-04] MEDS: ENOXAPARIN 40 MG/0.4 ML SYRINGE SUBCUT SCH (12:25)
[2019-06-04 12:53] LABS: Apearance,Urine CLEAR (Clear); Bilirubin,Urine Negative (Negative); Blood, Urine Negative (Negative); Glucose,Urine (UA) Negative (Negative); Hyaline Casts,Urine 5 /LPF (0-3); Ketones,Urine Negative (Negative); Mucus,Urine Occasional /LPF (Occasional); Nitrite,Urine Negative (Negative); Protein,Urine Negative; RBC,Urine 1 /HPF (0-4); Urine Color Straw (Yellow); Urine Specific Gravity 1.005 (1.001-1.035); Urine Urobilinogen < 2.0 EU/DL (0.2-1.0); WBC,Urine <1 /HPF (0-6)
[2019-06-04] MEDS ORDERED: MAGNESIUM SULF RIDER 2 GM in PREMIX 1 EACH IV PRN (13:50)
[2019-06-04] MEDS ORDERED: diphenhydrAMINE CAP 25 MG CAPSULE PO ONE (13:50)
[2019-06-04] MEDS ORDERED: POTASSIUM CHLORIDE RIDER 10 MEQ in PREMIX 1 EACH IV PRN (13:50)
[2019-06-04] MEDS ORDERED: DIAZEPAM 5 MG TABLET PO ONE (13:50)
[2019-06-05 05:57] LABS: Calcium 8.7 MG/DL (8.5-10.1); Osmolality,Calculated 277.8 MOS/KG (273-304)
[2019-06-05] MEDS: PANTOPRAZOLE 40 MG TABLET PO SCH (09:29)
[2019-06-05] MEDS: AMIODARONE 200 MG TABLET PO SCH ×2 (09:29→23:05)
[2019-06-05] MEDS: SACUBITRIL/VALSARTAN 49-51 MG TABLET PO SCH ×2 (09:29→23:04)
[2019-06-05] MEDS: ROSUVASTATIN 20 MG TABLET PO SCH (09:29)
[2019-06-05] MEDS: METOPROLOL TARTRATE 25 MG TABLET PO SCH ×2 (09:30→23:05)
[2019-06-05] MEDS: FUROSEMIDE 40 MG TABLET PO SCH (09:30)
[2019-06-05] MEDS: MAGNESIUM CHLORIDE 64 MG TABLET PO SCH ×2 (09:30→23:04)
[2019-06-05] MEDS: metOLazone 2.5 MG TABLET PO SCH (09:30)
[2019-06-05] MEDS: ASPIRIN EC 81 MG TABLET PO SCH (09:31)
[2019-06-05] MEDS: POTASSIUM CHLORIDE 20 MEQ TABLET PO SCH ×2 (09:31→23:06)
[2019-06-05] MEDS ORDERED: DEXTROSE 50% 25 GM/50 ML VIAL IV PRN (09:32)
[2019-06-05] MEDS ORDERED: GLUCAGON 1 MG VIAL IM PRN (09:32)
[2019-06-05 10:00] LABS: ABG Base Excess -0.1 MMOL/L (-2.5-2.5); ABG HCO3 24.3 MMOL/L (20-26); ABG Oxygen Saturation 96.9 % (95-100); ABG PCO2 37.1 MM HG (35-48); ABG PH 7.418 (7.35-7.45); ABG PO2 87.5 MM HG (80-95); ABG TCO2 19.8 MMOL/L (23-27); Allen Test Positive; Pt O2 Delivery Device Room Air
[2019-06-05] MEDS ORDERED: SODIUM CHLORIDE 0.9% 1,000 ML IV SCH (10:00)
[2019-06-05] MEDS: ENOXAPARIN 40 MG/0.4 ML SYRINGE SUBCUT SCH (12:06)
[2019-06-05] MEDS: CHLORHEXIDINE 4% SOLN 118 ML BOTTLE TOP SCH ×2 (16:32→23:10)
[2019-06-05] MEDS: DOXYCYCLINE HYCLATE 100 MG CAPSULE PO SCH (23:05)
[2019-06-05] MEDS: CHLORHEXIDINE 0.12% ORAL RINSE 60 ML BOTTLE SWISH/SPIT SCH (23:09)
[2019-06-06 05:52] LABS: Basophils # 0.2 10*3/uL (0.0-0.2); Basophils % 0.9 % (0.0-0.8); Eosinophils # 0.7 10*3/uL (0.0-0.87); Eosinophils % 3.1 % (0.00-10.9); Hematocrit 47.3 VOL% (42.0-52.0); Hemoglobin 15.6 GM/DL (14.0-18.0); Immature Granulocytes % 0.6 %; Immature Granulocytes Absolute 0.15 #; Lymphocytes # 2.3 10*3/uL (1.4-4.0); Lymphocytes % 10.1 % (21.2-54.2); Mean Corpuscular Volume 89.4 FL (87-102); Mean Platelet Volume 10.2 FL (9.6-12.0); Monocytes % 5.4 % (1.7-12.7); Neutrophils % 79.9 % (38.7-73.9); Red Blood Count 5.29 MC/CUMM (3.8-5.5); Red Cell Distribution Width 19.7 % (9.3-17.3); White Blood Count 23.2 T/CUMM (4-12)
[2019-06-06 06:02] LABS: Platelet Count 1131 T/CUMM (130-400)
[2019-06-06 06:23] LABS: Albumin 2.9 G/DL (3.4-5.0); Bilirubin,Total 0.9 MG/DL (0.2-1.0); Calcium 8.4 MG/DL (8.5-10.1); Osmolality,Calculated 284.1 MOS/KG (273-304); Total Protein 7.3 G/DL (6.4-8.3)
[2019-06-06 06:24] LABS: Band Neutrophils 10 % (0-10); Eosinophils 6 % (0-10); Lymphocytes 10 % (20-55); Segmented Neutrophils 66 % (50-85); Total Cells Counted 100
[2019-06-06 06:25] LABS: Anisocytosis 1+; Macrocytosis Slight; Platelet Estimate Increased; Target Cells Few
[2019-06-06 06:28] LABS: Troponin I 0.073 NG/ML (0.00-0.045)
[2019-06-06] MEDS: ASPIRIN EC 81 MG TABLET PO SCH (09:16)
[2019-06-06] MEDS: FUROSEMIDE 40 MG TABLET PO SCH (09:16)
[2019-06-06] MEDS: POTASSIUM CHLORIDE 20 MEQ TABLET PO SCH ×2 (09:16→20:51)
[2019-06-06] MEDS: ROSUVASTATIN 20 MG TABLET PO SCH (09:16)
[2019-06-06] MEDS: metOLazone 2.5 MG TABLET PO SCH (09:17)
[2019-06-06] MEDS: METOPROLOL TARTRATE 25 MG TABLET PO SCH ×2 (09:17→22:27)
[2019-06-06] MEDS: PANTOPRAZOLE 40 MG TABLET PO SCH (09:17)
[2019-06-06] MEDS: AMIODARONE 200 MG TABLET PO SCH ×2 (09:17→21:55)
[2019-06-06] MEDS: MAGNESIUM CHLORIDE 64 MG TABLET PO SCH ×2 (09:17→20:50)
[2019-06-06] MEDS: DOXYCYCLINE HYCLATE 100 MG CAPSULE PO SCH ×2 (09:18→20:50)
[2019-06-06] MEDS: SACUBITRIL/VALSARTAN 49-51 MG TABLET PO SCH ×2 (09:18→20:52)
[2019-06-06] MEDS: SODIUM CHLORIDE 0.9% 1,000 ML IV SCH ×3 (09:20→22:27)
[2019-06-06] MEDS: CHLORHEXIDINE 4% SOLN 118 ML BOTTLE TOP SCH (09:30)
[2019-06-06] MEDS: CHLORHEXIDINE 0.12% ORAL RINSE 60 ML BOTTLE SWISH/SPIT SCH ×2 (09:31→20:52)
[2019-06-06] MEDS ORDERED: CEFUROXIME INJ 1,500 MG in SYRINGE 1 EACH IV ONE (09:32)
[2019-06-06] MEDS: ENOXAPARIN 40 MG/0.4 ML SYRINGE SUBCUT SCH (11:06)
[2019-06-06] MEDS ORDERED: DIAZEPAM 5 MG TABLET PO ONE (13:30)
[2019-06-06] MEDS ORDERED: diphenhydrAMINE CAP 25 MG CAPSULE PO ONE (13:30)
[2019-06-06] MEDS ORDERED: fentaNYL 100 MCG/2 ML VIAL ONE (14:19)
[2019-06-06] MEDS ORDERED: MIDAZOLAM 2 MG/2 ML VIAL ONE ×2 (14:19→14:33)
[2019-06-06] MEDS ORDERED: LIDOCAINE 1% 20 ML VIAL ONE (14:23)
[2019-06-06] MEDS ORDERED: CLORAZEPATE 3.75 MG TABLET PO PRN (15:31)
[2019-06-06] MEDS ORDERED: ENOXAPARIN 60 MG/0.6 ML SYRINGE SUBCUT SCH (15:31)
[2019-06-06] MEDS ORDERED: ENOXAPARIN 30 MG/0.3 ML SYRINGE SUBCUT ONE (16:34)
[2019-06-07] MEDS ORDERED: VANCOMYCIN 500 MG VIAL ONE (04:23)
[2019-06-07] MEDS ORDERED: VANCOMYCIN 1,000 MG VIAL ONE ×2 (04:23→14:47)
[2019-06-07] MEDS ORDERED: PAPAVERINE 60 MG/2 ML VIAL ONE (04:23)
[2019-06-07 05:21] LABS: INR 1.1; PT Patient Result 11.8 SECS (9.6-12.2); Partial Thromboplastin Time 27.7 SECS (20.8-36.0)
[2019-06-07 05:22] LABS: Basophils # 0.2 10*3/uL (0.0-0.2); Basophils % 0.8 % (0.0-0.8); Eosinophils # 0.7 10*3/uL (0.0-0.87); Eosinophils % 3.8 % (0.00-10.9); Hematocrit 47.9 VOL% (42.0-52.0); Hemoglobin 15.7 GM/DL (14.0-18.0); Immature Granulocytes % 0.6 %; Immature Granulocytes Absolute 0.12 #; Lymphocytes # 2.2 10*3/uL (1.4-4.0); Lymphocytes % 11.8 % (21.2-54.2); Mean Corpuscular HGB Conc 32.8 GM/DL (32-36); Mean Corpuscular Volume 91.1 FL (87-102); Mean Platelet Volume 10.2 FL (9.6-12.0); Monocytes % 5.3 % (1.7-12.7); Neutrophils % 77.7 % (38.7-73.9); Red Blood Count 5.26 MC/CUMM (3.8-5.5); Red Cell Distribution Width 20.1 % (9.3-17.3); White Blood Count 18.9 T/CUMM (4-12)
[2019-06-07 05:25] LABS: Platelet Count 1044 T/CUMM (130-400)
[2019-06-07 05:26] LABS: Calcium 8.3 MG/DL (8.5-10.1); Osmolality,Calculated 280.4 MOS/KG (273-304)
[2019-06-07] MEDS ORDERED: CEFUROXIME INJ 1,500 MG in SYRINGE 1 EACH IV ONE (06:00)
[2019-06-07] MEDS ORDERED: HEPARIN/NACL 0.9% 2 UNITS/ML 500 ML IV ONE ×2 (06:08→10:48)
[2019-06-07] MEDS ORDERED: PHENYLEPHRINE DRIP 20 MG/250 ML PREMIX IV ONE (06:08)
[2019-06-07] MEDS ORDERED: SUFentanil 250 MCG/5 ML AMP ONE (06:09)
[2019-06-07] MEDS ORDERED: MIDAZOLAM 10 MG/2 ML VIAL ONE ×2 (06:09→16:36)
[2019-06-07] MEDS ORDERED: AMINOCAPROIC ACID 5,000 MG/20 ML VIAL ONE (06:09)
[2019-06-07] MEDS: SODIUM CHLORIDE 0.9% 1,000 ML IV SCH ×2 (06:25→10:25)
[2019-06-07 07:42] LABS: ABG Base Excess -1.7 MMOL/L (-2.5-2.5); ABG Oxygen Saturation 99.5 % (95-100); ABG PCO2 34.9 MM HG (35-48); ABG PH 7.411 (7.35-7.45); ABG TCO2 18.6 MMOL/L (23-27); Glucose Heart Surgery 93 MG/DL (74-106); Hematocrit Heart Surgery 47.7 PERCENT (42-52); Hemoglobin Heart Surgery 15.6 G/DL (14.0-18.0); Ionized Calcium Arterial 1.13 MMOL/L (1.21-1.46); PCO2 Patient Temp Arterial 34.9 MMHG; PH Patient Temp Arterial 7.411; Patient Temperature 37 CELCIUS; Potassium Heart/CVR 3.9 MMOL/L (3.5-5.1); Sodium Heart/CVR 139 MMOL/L (135-145)
[2019-06-07 08:20] LABS: Apearance,Urine CLEAR (Clear); Bacteria,Urine Occasional /HPF (Few); Bilirubin,Urine Negative (Negative); Blood, Urine Negative (Negative); Glucose,Urine (UA) Negative (Negative); Hyaline Casts,Urine 4 /LPF (0-3); Ketones,Urine 5 mg/dL (Negative); Mucus,Urine Occasional /LPF (Occasional); Nitrite,Urine Negative (Negative); Protein,Urine Negative; RBC,Urine 2 /HPF (0-4); Squamous Epithelial Cell,Urine Occasional /HPF (0-10); Urine Color Yellow (Yellow); Urine Specific Gravity 1.014 (1.001-1.035); Urine Urobilinogen < 2.0 EU/DL (0.2-1.0); WBC,Urine <1 /HPF (0-6)
[2019-06-07] MEDS ORDERED: NITROPRUSSIDE 50 MG/2 ML VIAL ONE (09:07)
[2019-06-07] MEDS ORDERED: POTASSIUM CHLORIDE RIDER 100 ML IV ONE (09:07)
[2019-06-07] MEDS ORDERED: PHENYLEPHRINE DRIP 40 MG/250 ML PREMIX IV ONE (09:07)
[2019-06-07] MEDS ORDERED: SODIUM BICARBONATE 50 MEQ/50 ML VIAL IV ONE ×4 (09:07→18:34)
[2019-06-07] MEDS ORDERED: CALCIUM CHLORIDE 1,000 MG/10 ML SYRINGE IV ONE (09:07)
[2019-06-07] MEDS ORDERED: ALBUMIN 5% 12.5 GM/250 ML VIAL IV ONE (09:08)
[2019-06-07 09:19] LABS: Hematocrit Heart Surgery 35.1 PERCENT (42-52); Hemoglobin Heart Surgery 11.4 G/DL (14.0-18.0); PH Patient Temp Venous 7.438; PO2 Patient Temp Venous 40.9 MM HG; Potassium Heart/CVR 4.3 MMOL/L (3.5-5.1); VBG Base Excess -1.3 MEQ/L (0-4); VBG HCO3 23.1 MEQ/L (24-28); VBG Oxygen Saturation 86.2 %; VBG PCO2 38.1 MMHG (41-51); VBG PH 7.395; VBG PO2 50.3 MMHG (17-40)
[2019-06-07 09:51] LABS: Hematocrit Heart Surgery 35.7 PERCENT (42-52); Hemoglobin Heart Surgery 11.6 G/DL (14.0-18.0); PCO2 Patient Temp Venous 32.7 MM HG; PH Patient Temp Venous 7.48; PO2 Patient Temp Venous 37.3 MM HG; Potassium Heart/CVR 4.2 MMOL/L (3.5-5.1); VBG Base Excess 1.3 MEQ/L (0-4); VBG HCO3 25.4 MEQ/L (24-28); VBG PCO2 39.7 MMHG (41-51); VBG PH 7.421; VBG PO2 49.2 MMHG (17-40)
[2019-06-07 10:14] LABS: Hemoglobin Heart Surgery 11.4 G/DL (14.0-18.0); PCO2 Patient Temp Venous 36.1 MM HG; PH Patient Temp Venous 7.468; Potassium Heart/CVR 4.8 MMOL/L (3.5-5.1); VBG HCO3 25.6 MEQ/L (24-28); VBG Oxygen Saturation 79.8 %; VBG PCO2 36.1 MMHG (41-51); VBG PH 7.468
[2019-06-07] MEDS: ROSUVASTATIN 20 MG TABLET PO SCH (10:25)
[2019-06-07] MEDS: ASPIRIN EC 81 MG TABLET PO SCH (10:25)
[2019-06-07] MEDS: AMIODARONE 200 MG TABLET PO SCH (10:25)
[2019-06-07] MEDS: SACUBITRIL/VALSARTAN 49-51 MG TABLET PO SCH (10:25)
[2019-06-07] MEDS: FUROSEMIDE 40 MG TABLET PO SCH (10:26)
[2019-06-07] MEDS: MAGNESIUM CHLORIDE 64 MG TABLET PO SCH (10:26)
[2019-06-07] MEDS: METOPROLOL TARTRATE 25 MG TABLET PO SCH (10:26)
[2019-06-07] MEDS: POTASSIUM CHLORIDE 20 MEQ TABLET PO SCH (10:26)
[2019-06-07] MEDS: CHLORHEXIDINE 0.12% ORAL RINSE 60 ML BOTTLE SWISH/SPIT SCH ×2 (10:26→20:32)
[2019-06-07] MEDS: PANTOPRAZOLE 40 MG TABLET PO SCH (10:26)
[2019-06-07] MEDS: metOLazone 2.5 MG TABLET PO SCH (10:26)
[2019-06-07] MEDS: DOXYCYCLINE HYCLATE 100 MG CAPSULE PO SCH (10:26)
[2019-06-07] MEDS ORDERED: LIDOCAINE 2% 5 ML VIAL ONE ×2 (10:48→12:28)
[2019-06-07] MEDS ORDERED: DEXTROSE 5% KCL 20 MEQ 20 MEQ/1,000 ML BAG IV ONE (10:48)
[2019-06-07] MEDS ORDERED: ALBUMIN 25% 25 GM/100 ML VIAL IV ONE (10:48)
[2019-06-07] MEDS ORDERED: MANNITOL 100 GM/500 ML BAG IV ONE (10:48)
[2019-06-07] MEDS ORDERED: PROTAMINE SULFATE 250 MG/25 ML VIAL IV ONE (10:49)
[2019-06-07] MEDS ORDERED: HEPARIN 10,000 UNIT/10 ML VIAL ONE (10:49)
[2019-06-07] MEDS ORDERED: methylPREDNISolone SOD SUC 1,000 MG/8 ML VIAL ONE (10:49)
[2019-06-07] MEDS ORDERED: MAGNESIUM SULFATE 5 GM/10 ML VIAL IV ONE (10:49)
[2019-06-07] MEDS ORDERED: FUROSEMIDE 20 MG/2 ML VIAL ONE (10:49)
[2019-06-07 11:01] LABS: ABG Base Excess 1.3 MMOL/L (-2.5-2.5); ABG HCO3 25.6 MMOL/L (20-26); ABG Oxygen Saturation 99.2 % (95-100); ABG PCO2 39.8 MM HG (35-48); ABG TCO2 22.8 MMOL/L (23-27); Glucose Heart Surgery 170 MG/DL (74-106); Hematocrit Heart Surgery 37.3 PERCENT (42-52); Hemoglobin Heart Surgery 12.1 G/DL (14.0-18.0); Ionized Calcium Arterial 1.19 MMOL/L (1.21-1.46); PCO2 Patient Temp Arterial 39.8 MMHG; Patient Temperature 37 CELCIUS; Potassium Heart/CVR 3.6 MMOL/L (3.5-5.1); Sodium Heart/CVR 136 MMOL/L (135-145)
[2019-06-07] MEDS: SODIUM CHLORIDE 0.45% 1,000 ML IV SCH ×3 (12:15→14:55)
[2019-06-07] MEDS: PHENYLEPHRINE DRIP 40 MG/250 ML PREMIX IV PRN ×4 (12:15→20:16)
[2019-06-07] MEDS ORDERED: NITROPRUSSIDE 100 MG in DEXTROSE 5% 250 ML IV PRN (12:24)
[2019-06-07] MEDS ORDERED: DEXTROSE 10% 250 ML BAG IV PRN ×2 (12:24)
[2019-06-07] MEDS ORDERED: MIDAZOLAM 2 MG/2 ML VIAL IV PRN (12:24)
[2019-06-07] MEDS ORDERED: ACETAMINOPHEN 650 MG SUPP RECTAL PRN (12:24)
[2019-06-07] MEDS ORDERED: INSULIN REGULAR 100 UNIT/ML IV ONE (12:24)
[2019-06-07] MEDS ORDERED: VECURONIUM 10 MG VIAL IV PRN ×2 (12:24)
[2019-06-07] MEDS ORDERED: CALCIUM CHLORIDE 1,000 MG/10 ML SYRINGE IV PRN (12:24)
[2019-06-07] MEDS ORDERED: LACTATED RINGERS 250 ML IV PRN (12:24)
[2019-06-07] MEDS ORDERED: MAGNESIUM SULF RIDER 4 GM in PREMIX 1 EACH IV PRN (12:24)
[2019-06-07] MEDS ORDERED: MORPHINE 4 MG/1 ML VIAL IV PRN (12:24)
[2019-06-07] MEDS ORDERED: MIDAZOLAM 10 MG/2 ML VIAL IV PRN (12:24)
[2019-06-07] MEDS ORDERED: ONDANSETRON 4 MG/2 ML VIAL IV PRN (12:24)
[2019-06-07] MEDS ORDERED: SODIUM CHLORIDE 0.9% 1,000 ML IV ONE (12:28)
[2019-06-07] MEDS ORDERED: CALCIUM CHLORIDE 1,000 MG/10 ML VIAL IV ONE (12:28)
[2019-06-07] MEDS ORDERED: ETOMIDATE 40 MG/20 ML VIAL IV ONE (12:28)
[2019-06-07] MEDS ORDERED: SEVOFLURANE 1 UNIT/15 MINUTE INH ONE ×2 (12:28→16:35)
[2019-06-07] MEDS ORDERED: SODIUM CHLORIDE 0.9% 250 ML IV ONE (12:28)
[2019-06-07] MEDS ORDERED: KETOROLAC 30 MG/1 ML VIAL IV SCH (12:30)
[2019-06-07] MEDS ORDERED: INSULIN REGULAR DRIP 100 ML IV SCH (12:30)
[2019-06-07] MEDS ORDERED: PROTAMINE SULFATE 50 MG/5 ML VIAL IV ONE (13:24)
[2019-06-07] MEDS: LACTATED RINGERS 1,000 ML IV PRN ×4 (13:30→22:03)
[2019-06-07 13:31] LABS: ABG Base Excess 0.1 MMOL/L (-2.5-2.5); ABG HCO3 24.6 MMOL/L (20-26); ABG Oxygen Saturation 99.5 % (95-100); ABG PCO2 38.8 MM HG (35-48); ABG TCO2 22.6 MMOL/L (23-27); Glucose Heart Surgery 180 MG/DL (74-106); Hemoglobin Heart Surgery 9.3 G/DL (14.0-18.0); Potassium Heart/CVR 3.2 MMOL/L (3.5-5.1)
[2019-06-07 13:35] LABS: Basophils # 0.1 10*3/uL (0.0-0.2); Basophils % 0.3 % (0.0-0.8); Eosinophils # 0.1 10*3/uL (0.0-0.87); Eosinophils % 0.3 % (0.00-10.9); Hematocrit 29.2 VOL% (42.0-52.0); Hemoglobin 9.5 GM/DL (14.0-18.0); Immature Granulocytes % 1.1 %; Immature Granulocytes Absolute 0.33 #; Lymphocytes # 0.8 10*3/uL (1.4-4.0); Lymphocytes % 2.7 % (21.2-54.2); Mean Corpuscular HGB Conc 32.5 GM/DL (32-36); Mean Corpuscular Volume 92.4 FL (87-102); Mean Platelet Volume 10.6 FL (9.6-12.0); Monocytes % 3.6 % (1.7-12.7); Platelet Count 772 T/CUMM (130-400); Red Blood Count 3.16 MC/CUMM (3.8-5.5); Red Cell Distribution Width 19.5 % (9.3-17.3); White Blood Count 29.5 T/CUMM (4-12)
[2019-06-07] MEDS ORDERED: DOBUTamine 500 MG/250 ML PREMIX IV ONE (13:40)
[2019-06-07 13:42] LABS: INR 1.3; PT Patient Result 13.6 SECS (9.6-12.2); Partial Thromboplastin Time 31.9 SECS (20.8-36.0)
[2019-06-07] MEDS: ALBUMIN 5% 12.5 GM in PREMIX 1 EACH IV PRN ×5 (13:42→20:04)
[2019-06-07] MEDS: POTASSIUM CHLORIDE RIDER 20 MEQ in PREMIX 1 EACH IV PRN ×6 (13:50→22:55)
[2019-06-07] MEDS: DOBUTamine 500 MG/250 ML PREMIX IV SCH (13:50)
[2019-06-07 13:56] LABS: Segmented Neutrophils 96 % (50-85); Total Cells Counted 100
[2019-06-07 13:58] LABS: Hypochromasia 1+; Macrocytosis Slight; Platelet Estimate Increased; Stomatocytes Few; Target Cells 1+
[2019-06-07 14:17] LABS: CKMB % 7.8 %
[2019-06-07 14:21] LABS: Troponin I 8.05 NG/ML (0.00-0.045)
[2019-06-07 14:35] LABS: Glucose Heart Surgery 229 MG/DL (74-106); Hemoglobin Heart Surgery 10.7 G/DL (14.0-18.0); Potassium Heart/CVR 4.4 MMOL/L (3.5-5.1); Sodium Heart/CVR 138 MMOL/L (135-145); VBG Base Excess -4.5 MEQ/L (0-4); VBG HCO3 23.3 MEQ/L (24-28); VBG Oxygen Saturation 60.7 %; VBG PH 7.237; VBG PO2 35.4 MMHG (17-40)
[2019-06-07] MEDS ORDERED: EPINEPHrine 1 MG/ML VIAL ONE (14:36)
[2019-06-07 14:53] LABS: Albumin 3.2 G/DL (3.4-5.0); Bilirubin,Total 1.3 MG/DL (0.2-1.0); Calcium 8.3 MG/DL (8.5-10.1); Osmolality,Calculated 284.4 MOS/KG (273-304); Total Protein 5.9 G/DL (6.4-8.3)
[2019-06-07] MEDS ORDERED: SUFentanil 50 MCG/ML AMP ONE (16:35)
[2019-06-07] MEDS ORDERED: ROCURONIUM 100 MG/10 ML VIAL IV ONE (16:36)
[2019-06-07] MEDS ORDERED: LACTATED RINGERS 1,000 ML IV ONE (16:36)
[2019-06-07 16:44] LABS: ABG Base Excess -9.5 MMOL/L (-2.5-2.5); ABG HCO3 18.2 MMOL/L (20-26); ABG PCO2 47.4 MM HG (35-48); ABG PO2 142.4 MM HG (80-95); ABG TCO2 19.7 MMOL/L (23-27); Glucose Heart Surgery 239 MG/DL (74-106); Hemoglobin Heart Surgery 11.6 G/DL (14.0-18.0); Potassium Heart/CVR 3.3 MMOL/L (3.5-5.1)
[2019-06-07 16:46] LABS: ABG PH 7.203 (7.35-7.45)
[2019-06-07 16:53] LABS: Basophils # 0.1 10*3/uL (0.0-0.2); Basophils % 0.3 % (0.0-0.8); Eosinophils % 0.1 % (0.00-10.9); Hematocrit 34.8 VOL% (42.0-52.0); Hemoglobin 11.1 GM/DL (14.0-18.0); Immature Granulocytes % 0.9 %; Immature Granulocytes Absolute 0.27 #; Lymphocytes # 1.2 10*3/uL (1.4-4.0); Lymphocytes % 4.1 % (21.2-54.2); Mean Corpuscular HGB Conc 31.9 GM/DL (32-36); Mean Corpuscular Volume 91.3 FL (87-102); Mean Platelet Volume 10.3 FL (9.6-12.0); Monocytes % 4.5 % (1.7-12.7); Neutrophils % 90.1 % (38.7-73.9); Platelet Count 566 T/CUMM (130-400); Red Blood Count 3.81 MC/CUMM (3.8-5.5); Red Cell Distribution Width 18.3 % (9.3-17.3); White Blood Count 28.9 T/CUMM (4-12)
[2019-06-07 16:57] LABS: INR 1.4; PT Patient Result 14.9 SECS (9.6-12.2); Partial Thromboplastin Time 30.2 SECS (20.8-36.0)
[2019-06-07 17:36] LABS: CKMB % 7.8 %
[2019-06-07 17:39] LABS: Troponin I 11.7 NG/ML (0.00-0.045)
[2019-06-07 17:40] LABS: Calcium 8.1 MG/DL (8.5-10.1)
[2019-06-07 17:41] LABS: Osmolality,Calculated 299.6 MOS/KG (273-304)
[2019-06-07 18:21] LABS: ABG Base Excess -5.6 MMOL/L (-2.5-2.5); ABG HCO3 19.8 MMOL/L (20-26); ABG Oxygen Saturation 99.5 % (95-100); ABG PCO2 35.1 MM HG (35-48); ABG PH 7.349 (7.35-7.45); ABG TCO2 17.5 MMOL/L (23-27); Glucose Heart Surgery 264 MG/DL (74-106); Hematocrit Heart Surgery 33.2 PERCENT (42-52); Hemoglobin Heart Surgery 10.8 G/DL (14.0-18.0)
[2019-06-07] MEDS: KETOROLAC 30 MG/1 ML VIAL IV SCH (18:38)
[2019-06-07 18:40] LABS: Band Neutrophils 3 % (0-10); Platelet Estimate Increased; Segmented Neutrophils 96 % (50-85)
[2019-06-07 18:41] LABS: Total Cells Counted 100
[2019-06-07 19:55] LABS: ABG Base Excess -5.2 MMOL/L (-2.5-2.5); ABG HCO3 20.1 MMOL/L (20-26); ABG Oxygen Saturation 98.8 % (95-100); ABG PCO2 36.7 MM HG (35-48); ABG PH 7.343 (7.35-7.45); ABG TCO2 18.1 MMOL/L (23-27); Glucose Heart Surgery 261 MG/DL (74-106); Hematocrit Heart Surgery 32.9 PERCENT (42-52); Hemoglobin Heart Surgery 10.7 G/DL (14.0-18.0); Potassium Heart/CVR 3.5 MMOL/L (3.5-5.1)
[2019-06-07] MEDS: MAGNESIUM SULF RIDER 2 GM in PREMIX 1 EACH IV PRN (20:10)
[2019-06-07] MEDS: INSULIN REGULAR 100 UNIT/ML IV PRN ×2 (20:15→22:12)
[2019-06-07] MEDS: CEFUROXIME INJ 1,500 MG in SYRINGE 1 EACH IV SCH (20:32)
[2019-06-07] MEDS: POTASSIUM CHLORIDE RIDER 10 MEQ in PREMIX 1 EACH IV PRN ×2 (20:38→23:26)
[2019-06-07 22:01] LABS: ABG Base Excess -6.7 MMOL/L (-2.5-2.5); ABG Oxygen Saturation 99.1 % (95-100); ABG PCO2 36.2 MM HG (35-48); ABG PH 7.322 (7.35-7.45); Glucose Heart Surgery 236 MG/DL (74-106); Hematocrit Heart Surgery 33.6 PERCENT (42-52); Hemoglobin Heart Surgery 10.9 G/DL (14.0-18.0); Potassium Heart/CVR 3.6 MMOL/L (3.5-5.1)
[2019-06-07] MEDS ORDERED: SODIUM BICARBONATE 50 MEQ/50 ML VIAL IV PRN (22:23)
[2019-06-07] MEDS ORDERED: AMIODARONE INJ 100 MG in DEXTROSE 5% 100 ML IV ONE (22:24)
[2019-06-07] MEDS ORDERED: AMIODARONE 450 MG/9 ML VIAL IV ONE (22:26)
[2019-06-07] MEDS ORDERED: AMIODARONE 150 MG/3 ML VIAL ONE (22:26)
[2019-06-07] MEDS ORDERED: AMIODARONE INJ 450 MG in DEXTROSE 5% 241 ML IV SCH (22:30)
[2019-06-07 22:40] LABS: CKMB % 8.4 %
[2019-06-07 22:45] LABS: Troponin I 9.42 NG/ML (0.00-0.045)
[2019-06-08 00:15] LABS: ABG Base Excess -6.2 MMOL/L (-2.5-2.5); ABG HCO3 18.7 MMOL/L (20-26); ABG Oxygen Saturation 98.5 % (95-100); ABG PH 7.346 (7.35-7.45); ABG PO2 163.1 MM HG (80-95); ABG TCO2 19.8 MMOL/L (23-27); Glucose Heart Surgery 213 MG/DL (74-106); Hemoglobin Heart Surgery 10.8 G/DL (14.0-18.0); Potassium Heart/CVR 3.6 MMOL/L (3.5-5.1)
[2019-06-08] MEDS: POTASSIUM CHLORIDE RIDER 20 MEQ in PREMIX 1 EACH IV PRN ×3 (00:24→06:10)
[2019-06-08] MEDS: POTASSIUM CHLORIDE RIDER 10 MEQ in PREMIX 1 EACH IV PRN ×3 (01:03→06:41)
[2019-06-08] MEDS: KETOROLAC 30 MG/1 ML VIAL IV SCH ×4 (01:46→14:43)
[2019-06-08] MEDS: PHENYLEPHRINE DRIP 40 MG/250 ML PREMIX IV PRN (02:37)
[2019-06-08] MEDS ORDERED: FUROSEMIDE 40 MG/4 ML VIAL IV ONE ×2 (02:55→15:36)
[2019-06-08 03:35] LABS: ABG Base Excess -4.6 MMOL/L (-2.5-2.5); ABG HCO3 20.6 MMOL/L (20-26); ABG Oxygen Saturation 99.2 % (95-100); ABG PCO2 32.2 MM HG (35-48); ABG TCO2 17.7 MMOL/L (23-27); Glucose Heart Surgery 222 MG/DL (74-106); Hematocrit Heart Surgery 31.9 PERCENT (42-52); Hemoglobin Heart Surgery 10.3 G/DL (14.0-18.0); Potassium Heart/CVR 3.5 MMOL/L (3.5-5.1)
[2019-06-08 03:38] LABS: Basophils % 0.1 % (0.0-0.8); Hematocrit 30.8 VOL% (42.0-52.0); Hemoglobin 10.2 GM/DL (14.0-18.0); Immature Granulocytes % 0.5 %; Immature Granulocytes Absolute 0.11 #; Lymphocytes # 0.9 10*3/uL (1.4-4.0); Mean Corpuscular HGB Conc 33.1 GM/DL (32-36); Mean Corpuscular Volume 88.3 FL (87-102); Mean Platelet Volume 10.9 FL (9.6-12.0); Monocytes % 4.5 % (1.7-12.7); Neutrophils % 90.9 % (38.7-73.9); Platelet Count 608 T/CUMM (130-400); Red Blood Count 3.49 MC/CUMM (3.8-5.5); Red Cell Distribution Width 19.4 % (9.3-17.3); White Blood Count 21.6 T/CUMM (4-12)
[2019-06-08 03:52] LABS: CKMB % 9.6 %
[2019-06-08] MEDS: INSULIN REGULAR 100 UNIT/ML IV PRN (03:54)
[2019-06-08 03:55] LABS: Troponin I 8.44 NG/ML (0.00-0.045)
[2019-06-08 04:39] LABS: Anisocytosis 1+; Band Neutrophils 3 % (0-10); Lymphocytes 2 % (20-55); Segmented Neutrophils 93 % (50-85); Total Cells Counted 100
[2019-06-08 04:40] LABS: Platelet Estimate Increased; Target Cells Few
[2019-06-08 04:47] LABS: Bilirubin,Direct 0.67 MG/DL (0.0-0.20); Bilirubin,Total 1.5 MG/DL (0.2-1.0); Calcium 7.9 MG/DL (8.5-10.1); Osmolality,Calculated 296.6 MOS/KG (273-304); Total Protein 5.6 G/DL (6.4-8.3)
[2019-06-08 05:20] LABS: ABG Base Excess -2.9 MMOL/L (-2.5-2.5); ABG Oxygen Saturation 99.2 % (95-100); ABG PCO2 30.7 MM HG (35-48); ABG PH 7.433 (7.35-7.45); ABG TCO2 18.5 MMOL/L (23-27); Glucose Heart Surgery 190 MG/DL (74-106); Hematocrit Heart Surgery 32.3 PERCENT (42-52); Hemoglobin Heart Surgery 10.4 G/DL (14.0-18.0); Potassium Heart/CVR 3.6 MMOL/L (3.5-5.1)
[2019-06-08 05:57] LABS: ABG Base Excess -3.5 MMOL/L (-2.5-2.5); ABG HCO3 20.2 MMOL/L (20-26); ABG Oxygen Saturation 97.8 % (95-100); ABG PCO2 31.8 MM HG (35-48); ABG PH 7.421 (7.35-7.45); ABG PO2 113.4 MM HG (80-95); ABG TCO2 21.2 MMOL/L (23-27); Glucose Heart Surgery 155 MG/DL (74-106); Hemoglobin Heart Surgery 10.6 G/DL (14.0-18.0); Potassium Heart/CVR 3.5 MMOL/L (3.5-5.1)
[2019-06-08] MEDS: CEFUROXIME INJ 1,500 MG in SYRINGE 1 EACH IV SCH ×2 (10:23→21:20)
[2019-06-08] MEDS: CLOPIDOGREL 75 MG TABLET PO SCH (10:26)
[2019-06-08] MEDS: metOLazone 2.5 MG TABLET PO SCH (10:26)
[2019-06-08] MEDS: AMIODARONE 200 MG TABLET PO SCH ×2 (10:26→21:20)
[2019-06-08] MEDS: ROSUVASTATIN 20 MG TABLET PO SCH (10:27)
[2019-06-08] MEDS: CHLORHEXIDINE 0.12% ORAL RINSE 60 ML BOTTLE SWISH/SPIT SCH ×2 (10:30→21:21)
[2019-06-08] MEDS: SACUBITRIL/VALSARTAN 49-51 MG TABLET PO SCH ×2 (11:25→21:19)
[2019-06-08] MEDS: METOPROLOL TARTRATE 25 MG TABLET PO SCH ×2 (11:25→21:17)
[2019-06-08] MEDS: INSULIN REGULAR 100 UNIT/ML SUBCUT SCH ×3 (14:40→22:01)
[2019-06-08] MEDS: DOBUTamine 500 MG/250 ML PREMIX IV SCH (14:44)
[2019-06-08] MEDS: MORPHINE 10 MG/1 ML VIAL IV PRN ×2 (15:12→19:35)
[2019-06-08 15:14] LABS: ABG Base Excess 1.3 MMOL/L (-2.5-2.5); ABG HCO3 25.5 MMOL/L (20-26); ABG Oxygen Saturation 93.1 % (95-100); ABG PCO2 32.3 MM HG (35-48); ABG PH 7.484 (7.35-7.45); ABG PO2 59.4 MM HG (80-95); ABG TCO2 22.2 MMOL/L (23-27); Glucose Heart Surgery 165 MG/DL (74-106); Hematocrit Heart Surgery 29.3 PERCENT (42-52); Hemoglobin Heart Surgery 9.5 G/DL (14.0-18.0); Potassium Heart/CVR 4.4 MMOL/L (3.5-5.1)
[2019-06-08] MEDS ORDERED: NITROGLYCERIN DRIP 50 MG/250 ML BOTTLE IV PRN (15:40)
[2019-06-08] MEDS ORDERED: HEPARIN/NACL 0.9% 2 UNITS/ML 500 ML IV ONE (15:48)
[2019-06-08] MEDS: ALBUTEROL/IPRATROPIUM 3 ML NEB RESP TX SCH ×2 (15:55→19:50)
[2019-06-08] MEDS: SODIUM CHLORIDE 0.45% 1,000 ML IV SCH ×2 (16:21→18:48)
[2019-06-08 17:39] LABS: CKMB % 7.1 %
[2019-06-08 17:44] LABS: Troponin I 8.17 NG/ML (0.00-0.045)
[2019-06-08] MEDS ORDERED: FUROSEMIDE 40 MG/4 ML VIAL IV PRN (21:23)
[2019-06-09] MEDS: ALBUTEROL/IPRATROPIUM 3 ML NEB RESP TX SCH ×5 (00:58→19:57)
[2019-06-09 01:55] LABS: Albumin 2.9 G/DL (3.4-5.0); Bilirubin,Direct 0.27 MG/DL (0.0-0.20); Bilirubin,Total 0.7 MG/DL (0.2-1.0); Calcium 7.8 MG/DL (8.5-10.1); Osmolality,Calculated 282.8 MOS/KG (273-304); Total Protein 5.6 G/DL (6.4-8.3)
[2019-06-09 02:01] LABS: Basophils # 0.1 10*3/uL (0.0-0.2); Basophils % 0.1 % (0.0-0.8); Hematocrit 26.1 VOL% (42.0-52.0); Hemoglobin 8.8 GM/DL (14.0-18.0); Immature Granulocytes % 2.6 %; Immature Granulocytes Absolute 1.46 #; Lymphocytes % 1.7 % (21.2-54.2); Mean Corpuscular HGB Conc 33.7 GM/DL (32-36); Mean Corpuscular Volume 86.7 FL (87-102); Mean Platelet Volume 11.1 FL (9.6-12.0); Monocytes % 5.1 % (1.7-12.7); NRBC # 0.06 10*3/uL; Neutrophils % 90.5 % (38.7-73.9); Platelet Count 589 T/CUMM (130-400); Red Blood Count 3.01 MC/CUMM (3.8-5.5); Red Cell Distribution Width 19.3 % (9.3-17.3)
[2019-06-09 02:04] LABS: White Blood Count 56.5 T/CUMM (4-12)
[2019-06-09] MEDS: MAGNESIUM SULF RIDER 2 GM in PREMIX 1 EACH IV PRN (02:40)
[2019-06-09] MEDS: POTASSIUM CHLORIDE RIDER 20 MEQ in PREMIX 1 EACH IV PRN ×2 (02:40→16:32)
[2019-06-09 02:45] LABS: Band Neutrophils 8 % (0-10); Lymphocytes 2 % (20-55); Segmented Neutrophils 84 % (50-85); Total Cells Counted 100
[2019-06-09 02:46] LABS: Acanthocytes Few; Anisocytosis 1+; Hypochromasia 1+; Target Cells 1+
[2019-06-09 02:47] LABS: Platelet Estimate Increased
[2019-06-09] MEDS: POTASSIUM CHLORIDE RIDER 10 MEQ in PREMIX 1 EACH IV PRN ×2 (03:32→17:26)
[2019-06-09] MEDS: MORPHINE 10 MG/1 ML VIAL IV PRN ×2 (08:05→23:18)
[2019-06-09] MEDS: CLOPIDOGREL 75 MG TABLET PO SCH (08:25)
[2019-06-09] MEDS: AMIODARONE 200 MG TABLET PO SCH ×2 (08:25→20:25)
[2019-06-09] MEDS: INSULIN REGULAR 100 UNIT/ML SUBCUT SCH ×4 (08:26→20:43)
[2019-06-09] MEDS: ROSUVASTATIN 20 MG TABLET PO SCH (08:26)
[2019-06-09] MEDS: metOLazone 2.5 MG TABLET PO SCH (08:26)
[2019-06-09] MEDS: CHLORHEXIDINE 0.12% ORAL RINSE 60 ML BOTTLE SWISH/SPIT SCH ×2 (08:27→20:25)
[2019-06-09] MEDS ORDERED: SODIUM CHLORIDE 0.9% 1,000 ML IV PRN (08:32)
[2019-06-09] MEDS: FUROSEMIDE 40 MG/4 ML VIAL IV SCH (11:59)
[2019-06-09] MEDS: SODIUM CHLORIDE 0.45% 1,000 ML IV SCH (13:12)
[2019-06-09 16:09] LABS: Hematocrit 31.9 VOL% (42.0-52.0); Hemoglobin 10.8 GM/DL (14.0-18.0)
[2019-06-10] MEDS: ALBUTEROL/IPRATROPIUM 3 ML NEB RESP TX SCH ×5 (00:57→19:24)
[2019-06-10 03:46] LABS: Basophils # 0.1 10*3/uL (0.0-0.2); Basophils % 0.1 % (0.0-0.8); Hemoglobin 10.7 GM/DL (14.0-18.0); Immature Granulocytes % 3.1 %; Lymphocytes # 2.4 10*3/uL (1.4-4.0); Lymphocytes % 3.6 % (21.2-54.2); Mean Corpuscular HGB Conc 33.4 GM/DL (32-36); Mean Platelet Volume 10.6 FL (9.6-12.0); Monocytes % 5.3 % (1.7-12.7); NRBC # 0.29 10*3/uL; Neutrophils % 87.9 % (38.7-73.9); Platelet Count 645 T/CUMM (130-400); Red Blood Count 3.72 MC/CUMM (3.8-5.5); Red Cell Distribution Width 20.9 % (9.3-17.3)
[2019-06-10 03:49] LABS: White Blood Count 64.8 T/CUMM (4-12)
[2019-06-10 04:08] LABS: Albumin 2.9 G/DL (3.4-5.0); Bilirubin,Direct 0.24 MG/DL (0.0-0.20); Bilirubin,Total 0.8 MG/DL (0.2-1.0); Total Protein 6.1 G/DL (6.4-8.3)
[2019-06-10 04:12] LABS: Band Neutrophils 19 % (0-10); Lymphocytes 2 % (20-55); Nucleated Red Blood Cells 1 (0-5); Platelet Estimate Increased; Segmented Neutrophils 71 % (50-85); Smudge Cells 1+; Total Cells Counted 100
[2019-06-10 04:13] LABS: Anisocytosis 2+; Macrocytosis Slight; Polychromasia Slight
[2019-06-10] MEDS: POTASSIUM CHLORIDE RIDER 20 MEQ in PREMIX 1 EACH IV PRN (06:01)
[2019-06-10] MEDS: CHLORHEXIDINE 0.12% ORAL RINSE 60 ML BOTTLE SWISH/SPIT SCH ×2 (08:00→20:17)
[2019-06-10] MEDS: AMIODARONE 200 MG TABLET PO SCH ×2 (08:00→20:17)
[2019-06-10] MEDS ORDERED: METOPROLOL TARTRATE 5 MG/5 ML VIAL IV ONE ×2 (08:09→08:11)
[2019-06-10] MEDS ORDERED: AMIODARONE INJ 150 MG in DEXTROSE 5% 100 ML IV ONE ×2 (08:51→09:10)
[2019-06-10] MEDS ORDERED: AMIODARONE 150 MG/3 ML VIAL ONE (08:54)
[2019-06-10] MEDS: PHENYLEPHRINE DRIP 40 MG/250 ML PREMIX IV PRN ×2 (09:15→18:06)
[2019-06-10] MEDS ORDERED: ALUMINUM/MAGNES/SIMETH MAX STR 30 ML UDCUP PO PRN (10:10)
[2019-06-10] MEDS ORDERED: PROMETHAZINE INJ 25 MG in SODIUM CHLORIDE 0.9% 50 ML IV ONE (10:12)
[2019-06-10] MEDS ORDERED: MIDAZOLAM 2 MG/2 ML VIAL IV ONE (10:12)
[2019-06-10] MEDS: INSULIN REGULAR 100 UNIT/ML SUBCUT SCH ×4 (11:23→20:13)
[2019-06-10] MEDS: ROSUVASTATIN 20 MG TABLET PO SCH (12:14)
[2019-06-10] MEDS: FUROSEMIDE 40 MG/4 ML VIAL IV SCH (12:14)
[2019-06-10] MEDS: CLOPIDOGREL 75 MG TABLET PO SCH (12:15)
[2019-06-10] MEDS: metOLazone 2.5 MG TABLET PO SCH (12:15)
[2019-06-10] MEDS: SODIUM CHLORIDE 0.45% 1,000 ML IV SCH ×2 (16:04→22:36)
[2019-06-10] MEDS: APIXABAN 5 MG TABLET PO SCH (20:17)
[2019-06-11] MEDS: LACTATED RINGERS 1,000 ML IV PRN (00:12)
[2019-06-11] MEDS: ALBUMIN 5% 12.5 GM in PREMIX 1 EACH IV PRN ×2 (00:12→00:45)
[2019-06-11] MEDS: ALBUTEROL/IPRATROPIUM 3 ML NEB RESP TX SCH ×4 (00:48→19:48)
[2019-06-11 03:27] LABS: Basophils # 0.2 10*3/uL (0.0-0.2); Basophils % 0.3 % (0.0-0.8); Eosinophils # 0.1 10*3/uL (0.0-0.87); Eosinophils % 0.1 % (0.00-10.9); Hemoglobin 10.3 GM/DL (14.0-18.0); Immature Granulocytes % 2.5 %; Immature Granulocytes Absolute 1.36 #; Lymphocytes # 4.8 10*3/uL (1.4-4.0); Lymphocytes % 8.8 % (21.2-54.2); Mean Corpuscular HGB Conc 33.2 GM/DL (32-36); Mean Corpuscular Volume 86.8 FL (87-102); Mean Platelet Volume 10.7 FL (9.6-12.0); Monocytes % 5.5 % (1.7-12.7); NRBC # 1.34 10*3/uL; Neutrophils % 82.8 % (38.7-73.9); Platelet Count 684 T/CUMM (130-400); Red Blood Count 3.57 MC/CUMM (3.8-5.5); Red Cell Distribution Width 20.6 % (9.3-17.3)
[2019-06-11 03:29] LABS: White Blood Count 54.3 T/CUMM (4-12)
[2019-06-11 03:38] LABS: Calcium 7.9 MG/DL (8.5-10.1); Osmolality,Calculated 274.1 MOS/KG (273-304)
[2019-06-11 04:22] LABS: Lymphocytes 9 % (20-55); Nucleated Red Blood Cells 4 (0-5); Segmented Neutrophils 88 % (50-85); Total Cells Counted 100
[2019-06-11 04:23] LABS: Hypochromasia 2+; Platelet Estimate Increased; Target Cells 2+
[2019-06-11] MEDS ORDERED: POTASSIUM CHLORIDE RIDER 100 ML IV ONE ×2 (04:30)
[2019-06-11] MEDS: POTASSIUM CHLORIDE RIDER 20 MEQ in PREMIX 1 EACH IV PRN (05:20)
[2019-06-11] MEDS: POTASSIUM CHLORIDE RIDER 10 MEQ in PREMIX 1 EACH IV PRN (07:00)
[2019-06-11] MEDS: CHLORHEXIDINE 0.12% ORAL RINSE 60 ML BOTTLE SWISH/SPIT SCH ×2 (09:30→20:29)
[2019-06-11] MEDS: AMIODARONE 200 MG TABLET PO SCH ×2 (09:30→20:29)
[2019-06-11] MEDS: metOLazone 2.5 MG TABLET PO SCH (09:30)
[2019-06-11] MEDS: ASPIRIN EC 81 MG TABLET PO SCH (09:30)
[2019-06-11] MEDS: ROSUVASTATIN 20 MG TABLET PO SCH (09:30)
[2019-06-11] MEDS: APIXABAN 5 MG TABLET PO SCH ×2 (09:30→20:29)
[2019-06-11] MEDS: INSULIN REGULAR 100 UNIT/ML SUBCUT SCH ×3 (11:34→20:31)
[2019-06-11] MEDS: FUROSEMIDE 40 MG/4 ML VIAL IV SCH (11:35)
[2019-06-12] MEDS: ALBUTEROL/IPRATROPIUM 3 ML NEB RESP TX SCH ×4 (00:34→19:48)
[2019-06-12 05:05] LABS: Basophils # 0.1 10*3/uL (0.0-0.2); Basophils % 0.2 % (0.0-0.8); Eosinophils # 0.2 10*3/uL (0.0-0.87); Eosinophils % 0.4 % (0.00-10.9); Hematocrit 31.7 VOL% (42.0-52.0); Hemoglobin 10.3 GM/DL (14.0-18.0); Immature Granulocytes % 1.9 %; Immature Granulocytes Absolute 0.95 #; Lymphocytes # 3.9 10*3/uL (1.4-4.0); Lymphocytes % 7.5 % (21.2-54.2); Mean Corpuscular HGB Conc 32.5 GM/DL (32-36); Mean Corpuscular Volume 88.8 FL (87-102); Mean Platelet Volume 10.5 FL (9.6-12.0); Monocytes % 5.7 % (1.7-12.7); NRBC # 1.92 10*3/uL; Neutrophils % 84.3 % (38.7-73.9); Platelet Count 816 T/CUMM (130-400); Red Blood Count 3.57 MC/CUMM (3.8-5.5); Red Cell Distribution Width 19.9 % (9.3-17.3)
[2019-06-12 05:10] LABS: White Blood Count 51.3 T/CUMM (4-12)
[2019-06-12 05:32] LABS: Hypochromasia 1+; Lymphocytes 5 % (20-55); Microcytosis 1+; Osmolality,Calculated 274.8 MOS/KG (273-304); Platelet Estimate Increased; Polychromasia Few; Segmented Neutrophils 92 % (50-85); Total Cells Counted 100
[2019-06-12] MEDS: POTASSIUM CHLORIDE RIDER 10 MEQ in PREMIX 1 EACH IV PRN ×4 (05:55→09:20)
[2019-06-12] MEDS: INSULIN REGULAR 100 UNIT/ML SUBCUT SCH ×4 (07:47→21:27)
[2019-06-12] MEDS: AMIODARONE 200 MG TABLET PO SCH ×2 (09:21→21:25)
[2019-06-12] MEDS: metOLazone 2.5 MG TABLET PO SCH (09:21)
[2019-06-12] MEDS: CHLORHEXIDINE 0.12% ORAL RINSE 60 ML BOTTLE SWISH/SPIT SCH ×2 (09:21→21:27)
[2019-06-12] MEDS: ROSUVASTATIN 20 MG TABLET PO SCH (09:21)
[2019-06-12] MEDS: APIXABAN 5 MG TABLET PO SCH ×2 (09:21→21:25)
[2019-06-12] MEDS: ASPIRIN EC 81 MG TABLET PO SCH (09:21)
[2019-06-13] MEDS: ALBUTEROL/IPRATROPIUM 3 ML NEB RESP TX SCH ×4 (00:30→19:22)
[2019-06-13] MEDS: POTASSIUM CHLORIDE RIDER 10 MEQ in PREMIX 1 EACH IV PRN ×4 (02:20→05:20)
[2019-06-13] MEDS: INSULIN REGULAR 100 UNIT/ML SUBCUT SCH ×4 (07:28→21:02)
[2019-06-13] MEDS ORDERED: POTASSIUM CHLORIDE 20 MEQ TABLET PO SCH (09:00)
[2019-06-13 09:21] LABS: Calcium 7.8 MG/DL (8.5-10.1); Osmolality,Calculated 270.2 MOS/KG (273-304)
[2019-06-13] MEDS: ROSUVASTATIN 20 MG TABLET PO SCH (09:48)
[2019-06-13] MEDS: ASPIRIN EC 81 MG TABLET PO SCH (09:49)
[2019-06-13] MEDS: APIXABAN 5 MG TABLET PO SCH ×2 (09:49→21:00)
[2019-06-13] MEDS: metOLazone 2.5 MG TABLET PO SCH (09:49)
[2019-06-13] MEDS: CHLORHEXIDINE 0.12% ORAL RINSE 60 ML BOTTLE SWISH/SPIT SCH ×2 (09:49→21:02)
[2019-06-13] MEDS: POTASSIUM CHLORIDE 20 MEQ TABLET PO SCH ×2 (09:49→12:31)
[2019-06-13] MEDS: AMIODARONE 200 MG TABLET PO SCH ×3 (09:51→23:49)
[2019-06-13 15:49] LABS: Basophils # 0.1 10*3/uL (0.0-0.2); Basophils % 0.2 % (0.0-0.8); Eosinophils # 0.2 10*3/uL (0.0-0.87); Eosinophils % 0.3 % (0.00-10.9); Hematocrit 32.8 VOL% (42.0-52.0); Hemoglobin 10.8 GM/DL (14.0-18.0); Immature Granulocytes % 2.4 %; Immature Granulocytes Absolute 1.38 #; Lymphocytes # 2.4 10*3/uL (1.4-4.0); Lymphocytes % 4.2 % (21.2-54.2); Mean Corpuscular HGB Conc 32.9 GM/DL (32-36); Mean Corpuscular Volume 86.3 FL (87-102); Mean Platelet Volume 10.2 FL (9.6-12.0); Monocytes % 7.6 % (1.7-12.7); Neutrophils % 85.3 % (38.7-73.9); Red Cell Distribution Width 18.8 % (9.3-17.3)
[2019-06-13 15:53] LABS: Platelet Count 1012 T/CUMM (130-400); White Blood Count 56.4 T/CUMM (4-12)
[2019-06-13 16:09] LABS: Anisocytosis 1+; Hypochromasia 1+; Lymphocytes 4 % (20-55); Nucleated Red Blood Cells 4 (0-5); Polychromasia 1+; Segmented Neutrophils 89 % (50-85); Total Cells Counted 100
[2019-06-13 16:10] LABS: Osmolality,Calculated 272.1 MOS/KG (273-304); Platelet Estimate Increased; Target Cells Few
[2019-06-13] MEDS ORDERED: POTASSIUM CHLORIDE 20 MEQ TABLET PO ONE (19:48)
[2019-06-13] MEDS ORDERED: FUROSEMIDE 40 MG/4 ML VIAL IV ONE (19:48)
[2019-06-14] MEDS: ALBUTEROL/IPRATROPIUM 3 ML NEB RESP TX SCH ×4 (01:58→19:28)
[2019-06-14 04:52] LABS: Basophils # 0.1 10*3/uL (0.0-0.2); Basophils % 0.2 % (0.0-0.8); Eosinophils # 0.2 10*3/uL (0.0-0.87); Eosinophils % 0.4 % (0.00-10.9); Hematocrit 31.3 VOL% (42.0-52.0); Hemoglobin 10.3 GM/DL (14.0-18.0); Immature Granulocytes Absolute 1.45 #; Lymphocytes # 2.9 10*3/uL (1.4-4.0); Mean Corpuscular HGB Conc 32.9 GM/DL (32-36); Mean Corpuscular Volume 86.5 FL (87-102); Mean Platelet Volume 10.3 FL (9.6-12.0); Monocytes % 8.3 % (1.7-12.7); NRBC # 0.98 10*3/uL; Neutrophils % 82.1 % (38.7-73.9); Red Blood Count 3.62 MC/CUMM (3.8-5.5); Red Cell Distribution Width 18.8 % (9.3-17.3)
[2019-06-14 05:01] LABS: Platelet Count 1058 T/CUMM (130-400)
[2019-06-14 05:04] LABS: White Blood Count 48.5 T/CUMM (4-12)
[2019-06-14 05:07] LABS: Calcium 7.8 MG/DL (8.5-10.1); Osmolality,Calculated 271.2 MOS/KG (273-304)
[2019-06-14 05:19] LABS: Lymphocytes 4 % (20-55); Nucleated Red Blood Cells 3 (0-5); Ovalocytes 1+; Platelet Estimate Increased; Polychromasia 2+; Segmented Neutrophils 91 % (50-85); Total Cells Counted 100
[2019-06-14 05:20] LABS: Anisocytosis 1+; Hypochromasia Slight; Macrocytosis 1+; Target Cells Few
[2019-06-14] MEDS: POTASSIUM CHLORIDE RIDER 10 MEQ in PREMIX 1 EACH IV PRN ×4 (06:46→09:56)
[2019-06-14] MEDS: INSULIN REGULAR 100 UNIT/ML SUBCUT SCH ×4 (07:43→21:58)
[2019-06-14] MEDS: ROSUVASTATIN 20 MG TABLET PO SCH (08:43)
[2019-06-14] MEDS: APIXABAN 5 MG TABLET PO SCH ×2 (08:43→21:58)
[2019-06-14] MEDS: AMIODARONE 200 MG TABLET PO SCH ×2 (08:43→21:58)
[2019-06-14] MEDS: metOLazone 2.5 MG TABLET PO SCH (08:43)
[2019-06-14] MEDS: ASPIRIN EC 81 MG TABLET PO SCH (08:43)
[2019-06-14] MEDS: POTASSIUM CHLORIDE 20 MEQ TABLET PO SCH ×2 (08:43→21:58)
[2019-06-14] MEDS: CHLORHEXIDINE 0.12% ORAL RINSE 60 ML BOTTLE SWISH/SPIT SCH ×2 (08:44→22:50)
[2019-06-14] MEDS: POTASSIUM CHLORIDE RIDER 20 MEQ in PREMIX 1 EACH IV PRN ×2 (14:22→15:52)
[2019-06-15] MEDS: ALBUTEROL/IPRATROPIUM 3 ML NEB RESP TX SCH ×4 (00:58→20:40)
[2019-06-15] MEDS: POTASSIUM CHLORIDE RIDER 20 MEQ in PREMIX 1 EACH IV PRN (03:27)
[2019-06-15] MEDS: POTASSIUM CHLORIDE RIDER 10 MEQ in PREMIX 1 EACH IV PRN ×2 (03:28→08:42)
[2019-06-15 04:48] LABS: Basophils # 0.1 10*3/uL (0.0-0.2); Basophils % 0.3 % (0.0-0.8); Eosinophils # 0.2 10*3/uL (0.0-0.87); Eosinophils % 0.5 % (0.00-10.9); Hematocrit 32.1 VOL% (42.0-52.0); Hemoglobin 10.3 GM/DL (14.0-18.0); Immature Granulocytes % 2.3 %; Immature Granulocytes Absolute 1.05 #; Lymphocytes # 2.5 10*3/uL (1.4-4.0); Lymphocytes % 5.6 % (21.2-54.2); Mean Corpuscular HGB Conc 32.1 GM/DL (32-36); Mean Corpuscular Volume 87.2 FL (87-102); Mean Platelet Volume 10.1 FL (9.6-12.0); Monocytes % 7.7 % (1.7-12.7); NRBC # 0.62 10*3/uL; Neutrophils % 83.6 % (38.7-73.9); Red Blood Count 3.68 MC/CUMM (3.8-5.5); Red Cell Distribution Width 18.8 % (9.3-17.3)
[2019-06-15 04:56] LABS: Platelet Count 1115 T/CUMM (130-400); White Blood Count 44.9 T/CUMM (4-12)
[2019-06-15 05:07] LABS: Osmolality,Calculated 266.4 MOS/KG (273-304)
[2019-06-15 05:13] LABS: Hypochromasia Slight; Lymphocytes 2 % (20-55); Nucleated Red Blood Cells 1 (0-5); Platelet Estimate Increased; Polychromasia Few; Segmented Neutrophils 93 % (50-85); Total Cells Counted 100
[2019-06-15] MEDS: INSULIN REGULAR 100 UNIT/ML SUBCUT SCH ×4 (08:08→21:03)
[2019-06-15] MEDS: metOLazone 2.5 MG TABLET PO SCH (08:43)
[2019-06-15] MEDS: APIXABAN 5 MG TABLET PO SCH ×2 (08:43→21:46)
[2019-06-15] MEDS: AMIODARONE 200 MG TABLET PO SCH ×2 (08:43→21:46)
[2019-06-15] MEDS: POTASSIUM CHLORIDE 20 MEQ TABLET PO SCH ×2 (08:43→21:46)
[2019-06-15] MEDS: ROSUVASTATIN 20 MG TABLET PO SCH (08:43)
[2019-06-15] MEDS: ASPIRIN EC 81 MG TABLET PO SCH (08:44)
[2019-06-15] MEDS: CHLORHEXIDINE 0.12% ORAL RINSE 60 ML BOTTLE SWISH/SPIT SCH ×2 (08:45→21:45)
[2019-06-16] MEDS: ALBUTEROL/IPRATROPIUM 3 ML NEB RESP TX SCH ×4 (01:35→20:13)
[2019-06-16 04:47] LABS: Basophils # 0.1 10*3/uL (0.0-0.2); Basophils % 0.3 % (0.0-0.8); Eosinophils # 0.2 10*3/uL (0.0-0.87); Eosinophils % 0.4 % (0.00-10.9); Hematocrit 30.5 VOL% (42.0-52.0); Hemoglobin 9.9 GM/DL (14.0-18.0); Immature Granulocytes % 1.6 %; Immature Granulocytes Absolute 0.69 #; Lymphocytes # 2.3 10*3/uL (1.4-4.0); Lymphocytes % 5.3 % (21.2-54.2); Mean Corpuscular HGB Conc 32.5 GM/DL (32-36); Mean Corpuscular Volume 87.1 FL (87-102); Mean Platelet Volume 10.4 FL (9.6-12.0); Monocytes % 7.5 % (1.7-12.7); NRBC # 0.41 10*3/uL; Neutrophils % 84.9 % (38.7-73.9)
[2019-06-16 04:51] LABS: White Blood Count 43.4 T/CUMM (4-12)
[2019-06-16 04:52] LABS: Platelet Count 1196 T/CUMM (130-400)
[2019-06-16 05:02] LABS: Calcium 7.8 MG/DL (8.5-10.1); Osmolality,Calculated 271.1 MOS/KG (273-304)
[2019-06-16 05:44] LABS: Eosinophils 3 % (0-10); Lymphocytes 3 % (20-55); Platelet Estimate Increased; Segmented Neutrophils 87 % (50-85); Total Cells Counted 100
[2019-06-16 05:45] LABS: Polychromasia Few
[2019-06-16] MEDS: POTASSIUM CHLORIDE RIDER 10 MEQ in PREMIX 1 EACH IV PRN ×4 (06:17→09:33)
[2019-06-16] MEDS ORDERED: FUROSEMIDE 40 MG/4 ML VIAL IV ONE (08:00)
[2019-06-16] MEDS: INSULIN REGULAR 100 UNIT/ML SUBCUT SCH ×4 (09:34→20:48)
[2019-06-16] MEDS: AMIODARONE 200 MG TABLET PO SCH ×2 (09:34→20:48)
[2019-06-16] MEDS: SPIRONOLACTONE 25 MG TABLET PO SCH (09:34)
[2019-06-16] MEDS: metOLazone 2.5 MG TABLET PO SCH (09:35)
[2019-06-16] MEDS: CHLORHEXIDINE 0.12% ORAL RINSE 60 ML BOTTLE SWISH/SPIT SCH ×2 (09:35→20:50)
[2019-06-16] MEDS: APIXABAN 5 MG TABLET PO SCH (09:35)
[2019-06-16] MEDS: POTASSIUM CHLORIDE 20 MEQ TABLET PO SCH ×2 (09:35→20:48)
[2019-06-16] MEDS: ROSUVASTATIN 20 MG TABLET PO SCH (09:35)
[2019-06-16] MEDS: ASPIRIN EC 81 MG TABLET PO SCH (09:35)
[2019-06-17] MEDS: ALBUTEROL/IPRATROPIUM 3 ML NEB RESP TX SCH ×4 (00:40→19:30)
[2019-06-17 05:01] LABS: Basophils # 0.2 10*3/uL (0.0-0.2); Basophils % 0.3 % (0.0-0.8); Eosinophils # 0.3 10*3/uL (0.0-0.87); Eosinophils % 0.5 % (0.00-10.9); Hematocrit 31.7 VOL% (42.0-52.0); Hemoglobin 10.1 GM/DL (14.0-18.0); Immature Granulocytes Absolute 0.99 #; Lymphocytes # 2.4 10*3/uL (1.4-4.0); Mean Corpuscular HGB Conc 31.9 GM/DL (32-36); Mean Corpuscular Volume 87.6 FL (87-102); Mean Platelet Volume 10.1 FL (9.6-12.0); Monocytes % 7.4 % (1.7-12.7); Neutrophils % 84.8 % (38.7-73.9); Red Blood Count 3.62 MC/CUMM (3.8-5.5); Red Cell Distribution Width 18.6 % (9.3-17.3)
[2019-06-17 05:11] LABS: Calcium 7.9 MG/DL (8.5-10.1); Osmolality,Calculated 274.8 MOS/KG (273-304)
[2019-06-17 05:53] LABS: Platelet Count 1288 T/CUMM (130-400); White Blood Count 49.2 T/CUMM (4-12)
[2019-06-17 05:55] LABS: Eosinophils 1 % (0-10); Hypochromasia 1+; Lymphocytes 3 % (20-55); Platelet Estimate Increased; Segmented Neutrophils 85 % (50-85); Total Cells Counted 100
[2019-06-17] MEDS: INSULIN REGULAR 100 UNIT/ML SUBCUT SCH ×4 (08:11→20:59)
[2019-06-17] MEDS: SPIRONOLACTONE 25 MG TABLET PO SCH (08:13)
[2019-06-17] MEDS: ASPIRIN EC 81 MG TABLET PO SCH (08:13)
[2019-06-17] MEDS: AMIODARONE 200 MG TABLET PO SCH ×2 (08:13→20:55)
[2019-06-17] MEDS: CHLORHEXIDINE 0.12% ORAL RINSE 60 ML BOTTLE SWISH/SPIT SCH ×2 (08:14→20:59)
[2019-06-17] MEDS: ROSUVASTATIN 20 MG TABLET PO SCH (08:14)
[2019-06-17] MEDS: POTASSIUM CHLORIDE 20 MEQ TABLET PO SCH ×2 (08:14→20:55)
[2019-06-17] MEDS: metOLazone 2.5 MG TABLET PO SCH (08:14)
[2019-06-17] MEDS: POTASSIUM CHLORIDE RIDER 10 MEQ in PREMIX 1 EACH IV PRN ×4 (08:17→11:46)
[2019-06-18] MEDS: ALBUTEROL/IPRATROPIUM 3 ML NEB RESP TX SCH ×4 (01:10→19:38)
[2019-06-18 05:36] LABS: Bilirubin,Total 1.1 MG/DL (0.2-1.0); Osmolality,Calculated 269.4 MOS/KG (273-304); Total Protein 6.8 G/DL (6.4-8.3)
[2019-06-18] MEDS: POTASSIUM CHLORIDE RIDER 10 MEQ in PREMIX 1 EACH IV PRN ×4 (06:05→11:39)
[2019-06-18] MEDS: INSULIN REGULAR 100 UNIT/ML SUBCUT SCH ×4 (08:39→20:32)
[2019-06-18] MEDS: ASPIRIN EC 81 MG TABLET PO SCH (09:23)
[2019-06-18] MEDS: POTASSIUM CHLORIDE 20 MEQ TABLET PO SCH ×2 (09:23→21:18)
[2019-06-18] MEDS: CHLORHEXIDINE 0.12% ORAL RINSE 60 ML BOTTLE SWISH/SPIT SCH ×2 (09:24→21:18)
[2019-06-18] MEDS: cefTRIAXone 1,000 MG in SYRINGE 1 EACH IV SCH (11:36)
[2019-06-19] MEDS: ALBUTEROL/IPRATROPIUM 3 ML NEB RESP TX SCH ×5 (00:15→20:48)
[2019-06-19 06:26] LABS: Basophils # 0.2 10*3/uL (0.0-0.2); Basophils % 0.4 % (0.0-0.8); Eosinophils # 0.6 10*3/uL (0.0-0.87); Eosinophils % 1.6 % (0.00-10.9); Hematocrit 31.8 VOL% (42.0-52.0); Immature Granulocytes % 1.7 %; Immature Granulocytes Absolute 0.67 #; Lymphocytes # 2.1 10*3/uL (1.4-4.0); Lymphocytes % 5.4 % (21.2-54.2); Mean Corpuscular HGB Conc 31.4 GM/DL (32-36); Mean Corpuscular Volume 88.1 FL (87-102); Mean Platelet Volume 9.7 FL (9.6-12.0); Monocytes % 7.5 % (1.7-12.7); NRBC # 0.14 10*3/uL; Neutrophils % 83.4 % (38.7-73.9); Red Blood Count 3.61 MC/CUMM (3.8-5.5); Red Cell Distribution Width 18.6 % (9.3-17.3); White Blood Count 39.5 T/CUMM (4-12)
[2019-06-19 06:33] LABS: Platelet Count 1276 T/CUMM (130-400)
[2019-06-19 06:48] LABS: Albumin 1.9 G/DL (3.4-5.0); Bilirubin,Total 1.3 MG/DL (0.2-1.0); Calcium 7.9 MG/DL (8.5-10.1); Osmolality,Calculated 278.7 MOS/KG (273-304); Total Protein 6.5 G/DL (6.4-8.3)
[2019-06-19] MEDS: INSULIN REGULAR 100 UNIT/ML SUBCUT SCH ×4 (07:53→20:48)
[2019-06-19 07:59] LABS: Band Neutrophils 5 % (0-10); Eosinophils 7 % (0-10); Lymphocytes 6 % (20-55); Nucleated Red Blood Cells 1 (0-5); Platelet Estimate Increased; Segmented Neutrophils 72 % (50-85); Total Cells Counted 100
[2019-06-19 08:02] LABS: Anisocytosis 2+
[2019-06-19 08:03] LABS: Macrocytosis Slight; Target Cells Few
[2019-06-19] MEDS: POTASSIUM CHLORIDE 20 MEQ TABLET PO SCH ×2 (08:56→21:23)
[2019-06-19] MEDS: POTASSIUM CHLORIDE RIDER 10 MEQ in PREMIX 1 EACH IV PRN ×4 (08:56→13:06)
[2019-06-19] MEDS: ASPIRIN EC 81 MG TABLET PO SCH (08:56)
[2019-06-19] MEDS: CHLORHEXIDINE 0.12% ORAL RINSE 60 ML BOTTLE SWISH/SPIT SCH ×2 (08:57→21:21)
[2019-06-19] MEDS: SPIRONOLACTONE 25 MG TABLET PO SCH (08:57)
[2019-06-19] MEDS: metOLazone 2.5 MG TABLET PO SCH (08:57)
[2019-06-19] MEDS: cefTRIAXone 1,000 MG in SYRINGE 1 EACH IV SCH (11:41)
[2019-06-19] MEDS: METOPROLOL SUCCINATE XL 25 MG TABLET PO SCH (15:40)
[2019-06-20] MEDS: ALBUTEROL/IPRATROPIUM 3 ML NEB RESP TX SCH ×4 (01:12→20:52)
[2019-06-20 06:42] LABS: Albumin 1.9 G/DL (3.4-5.0); Bilirubin,Total 0.8 MG/DL (0.2-1.0); Osmolality,Calculated 272.1 MOS/KG (273-304); Total Protein 6.8 G/DL (6.4-8.3)
[2019-06-20] MEDS: POTASSIUM CHLORIDE RIDER 10 MEQ in PREMIX 1 EACH IV PRN ×4 (08:34→11:31)
[2019-06-20] MEDS: INSULIN REGULAR 100 UNIT/ML SUBCUT SCH ×4 (08:35→23:25)
[2019-06-20] MEDS: ASPIRIN EC 81 MG TABLET PO SCH (08:35)
[2019-06-20] MEDS: metOLazone 2.5 MG TABLET PO SCH (08:35)
[2019-06-20] MEDS: SPIRONOLACTONE 25 MG TABLET PO SCH (08:35)
[2019-06-20] MEDS: POTASSIUM CHLORIDE 20 MEQ TABLET PO SCH ×2 (08:35→21:24)
[2019-06-20] MEDS: CHLORHEXIDINE 0.12% ORAL RINSE 60 ML BOTTLE SWISH/SPIT SCH ×2 (08:36→21:24)
[2019-06-20] MEDS: METOPROLOL SUCCINATE XL 25 MG TABLET PO SCH (08:36)
[2019-06-20] MEDS: cefTRIAXone 1,000 MG in SYRINGE 1 EACH IV SCH (12:02)
[2019-06-20 14:00] LABS: Hepatitis B Surface Ag Quant < 0.10 Index; Hepatitis B Surface Ag Result Negative (Negative); Hepatitis C Virus Ab Quant 0.19 Index; Hepatitis C Virus Ab Result Negative (Negative)
[2019-06-21] MEDS: ALBUTEROL/IPRATROPIUM 3 ML NEB RESP TX SCH ×4 (01:47→19:25)
[2019-06-21 05:28] LABS: Basophils # 0.2 10*3/uL (0.0-0.2); Basophils % 0.5 % (0.0-0.8); Eosinophils # 1.1 10*3/uL (0.0-0.87); Eosinophils % 3.4 % (0.00-10.9); Hematocrit 30.8 VOL% (42.0-52.0); Hemoglobin 9.7 GM/DL (14.0-18.0); Immature Granulocytes % 1.2 %; Immature Granulocytes Absolute 0.38 #; Lymphocytes # 2.1 10*3/uL (1.4-4.0); Lymphocytes % 6.6 % (21.2-54.2); Mean Corpuscular HGB Conc 31.5 GM/DL (32-36); Mean Corpuscular Volume 90.3 FL (87-102); Monocytes % 7.2 % (1.7-12.7); NRBC # 0.08 10*3/uL; Neutrophils % 81.1 % (38.7-73.9); Red Blood Count 3.41 MC/CUMM (3.8-5.5); Red Cell Distribution Width 18.7 % (9.3-17.3); White Blood Count 32.6 T/CUMM (4-12)
[2019-06-21 05:37] LABS: Platelet Count 1336 T/CUMM (130-400)
[2019-06-21 05:51] LABS: Albumin 1.9 G/DL (3.4-5.0); Calcium 7.8 MG/DL (8.5-10.1); Osmolality,Calculated 276.7 MOS/KG (273-304); Total Protein 6.8 G/DL (6.4-8.3)
[2019-06-21 05:51] LABS: Calcium 7.8 MG/DL (8.5-10.1); Osmolality,Calculated 276.7 MOS/KG (273-304)
[2019-06-21 05:52] LABS: Band Neutrophils 1 % (0-10); Eosinophils 7 % (0-10); Hypochromasia 1+; Lymphocytes 7 % (20-55); Ovalocytes Slight; Platelet Estimate Increased; Segmented Neutrophils 78 % (50-85); Total Cells Counted 100
[2019-06-21 05:53] LABS: Macrocytosis Slight
[2019-06-21] MEDS: POTASSIUM CHLORIDE RIDER 10 MEQ in PREMIX 1 EACH IV PRN ×3 (06:14→09:30)
[2019-06-21] MEDS: INSULIN REGULAR 100 UNIT/ML SUBCUT SCH ×4 (08:28→20:32)
[2019-06-21] MEDS: AMIODARONE 200 MG TABLET PO SCH (08:46)
[2019-06-21] MEDS: ROSUVASTATIN 20 MG TABLET PO SCH (08:46)
[2019-06-21] MEDS: metOLazone 5 MG TABLET PO SCH (09:28)
[2019-06-21] MEDS: POTASSIUM CHLORIDE 20 MEQ TABLET PO SCH ×2 (09:28→20:28)
[2019-06-21] MEDS: METOPROLOL SUCCINATE XL 25 MG TABLET PO SCH (09:28)
[2019-06-21] MEDS: ASPIRIN EC 81 MG TABLET PO SCH (09:28)
[2019-06-21] MEDS: ALBUMIN 5% 12.5 GM in PREMIX 1 EACH IV SCH ×2 (09:29→15:51)
[2019-06-21] MEDS: SPIRONOLACTONE 25 MG TABLET PO SCH (09:29)
[2019-06-21] MEDS: CHLORHEXIDINE 0.12% ORAL RINSE 60 ML BOTTLE SWISH/SPIT SCH ×2 (09:29→20:29)
[2019-06-21] MEDS: cefTRIAXone 1,000 MG in SYRINGE 1 EACH IV SCH (12:38)
[2019-06-22] MEDS: ALBUTEROL/IPRATROPIUM 3 ML NEB RESP TX SCH ×4 (00:15→19:19)
[2019-06-22] MEDS: ALBUMIN 5% 12.5 GM in PREMIX 1 EACH IV SCH (00:20)
[2019-06-22 05:34] LABS: Albumin 2.4 G/DL (3.4-5.0); Bilirubin,Total 1.3 MG/DL (0.2-1.0); Calcium 8.2 MG/DL (8.5-10.1); Osmolality,Calculated 276.8 MOS/KG (273-304); Total Protein 7.1 G/DL (6.4-8.3)
[2019-06-22] MEDS: INSULIN REGULAR 100 UNIT/ML SUBCUT SCH ×4 (07:57→22:08)
[2019-06-22] MEDS: ROSUVASTATIN 20 MG TABLET PO SCH (08:36)
[2019-06-22] MEDS: ASPIRIN EC 81 MG TABLET PO SCH (08:37)
[2019-06-22] MEDS: SPIRONOLACTONE 25 MG TABLET PO SCH (08:37)
[2019-06-22] MEDS: metOLazone 5 MG TABLET PO SCH (08:37)
[2019-06-22] MEDS: POTASSIUM CHLORIDE 20 MEQ TABLET PO SCH ×2 (08:37→22:05)
[2019-06-22] MEDS: AMIODARONE 200 MG TABLET PO SCH (08:37)
[2019-06-22] MEDS: CHLORHEXIDINE 0.12% ORAL RINSE 60 ML BOTTLE SWISH/SPIT SCH ×2 (08:38→22:06)
[2019-06-22] MEDS: METOPROLOL SUCCINATE XL 25 MG TABLET PO SCH (08:38)
[2019-06-22] MEDS: cefTRIAXone 1,000 MG in SYRINGE 1 EACH IV SCH (11:34)
[2019-06-23] MEDS: ALBUTEROL/IPRATROPIUM 3 ML NEB RESP TX SCH ×2 (00:17→08:21)
[2019-06-23 09:32] VITALS: BP 101/64
[2019-06-23] MEDS: INSULIN REGULAR 100 UNIT/ML SUBCUT SCH ×2 (09:43→12:32)
[2019-06-23] MEDS: ASPIRIN EC 81 MG TABLET PO SCH (09:46)
[2019-06-23] MEDS: metOLazone 5 MG TABLET PO SCH (09:46)
[2019-06-23] MEDS: POTASSIUM CHLORIDE 20 MEQ TABLET PO SCH (09:46)
[2019-06-23] MEDS: SPIRONOLACTONE 25 MG TABLET PO SCH (09:47)
[2019-06-23] MEDS: AMIODARONE 200 MG TABLET PO SCH (09:47)
[2019-06-23] MEDS: APIXABAN 5 MG TABLET PO SCH (09:47)
[2019-06-23] MEDS: METOPROLOL SUCCINATE XL 25 MG TABLET PO SCH (09:47)
[2019-06-23] MEDS: ROSUVASTATIN 20 MG TABLET PO SCH (09:47)
[2019-06-23] MEDS: CHLORHEXIDINE 0.12% ORAL RINSE 60 ML BOTTLE SWISH/SPIT SCH (09:48)
== END 2019-06-23 12:29 | disposition home health service (06) | DRG 233 ==
LOC: EDBD → EDUNIT# → N.ED 08:23 → N.EDINP 10:34 → SUATTDRO 10:34 → N.TELES 11:36 → N.CVR 06-06 15:38 → N.ICU 06-08 15:09 → N.TELES 06-11 12:39
PROVIDERS: ADMIT Emergency Medicine

== ENCOUNTER 2019-09-19 17:00 | Observation (INO) ==
[2019-09-19 17:53] LABS: Basophils % 0.9 % (0.0-0.8); Hemoglobin 12.7 GM/DL (14.0-18.0); Immature Granulocytes % 0.8 %; Mean Corpuscular Volume 78.3 FL (87-102); Mean Platelet Volume 9.5 FL (9.6-12.0)
[2019-09-19 18:00] LABS: INR 1.1; PT Patient Result 11.9 SECS (9.6-12.2); Partial Thromboplastin Time 30.6 SECS (20.8-36.0)
[2019-09-19 18:06] LABS: Alanine Aminotransferase 36 U/L (16-61); Albumin 3.4 G/DL (3.4-5.0); Alkaline Phosphatase 157 U/L (45-117); Aspartate Amino Transferase 37 U/L (0-37); Blood Urea Nitrogen 21 MG/DL (7-18); Calcium 9.1 MG/DL (8.5-10.1); Estimated Glom Filtration Rate 61 ML/MIN; Glucose 87 MG/DL (74-106); Osmolality,Calculated 271.1 MOS/KG (273-304); Total Protein 9.3 G/DL (6.4-8.3)
[2019-09-19 18:14] LABS: Basophils # 0.3 10*3/uL (0.0-0.2); Eosinophils # 0.7 10*3/uL (0.0-0.87); Eosinophils % 2.6 % (0.00-10.9); Hematocrit 43.6 VOL% (42.0-52.0); Immature Granulocytes Absolute 0.22 #; Lymphocytes # 3.1 10*3/uL (1.4-4.0); Mean Corpuscular HGB Conc 29.1 GM/DL (32-36); Monocytes % 5.8 % (1.7-12.7); NRBC # 0.07 10*3/uL; Neutrophils % 78.9 % (38.7-73.9); Red Blood Count 5.57 MC/CUMM (3.8-5.5); Red Cell Distribution Width 20.5 % (9.3-17.3)
[2019-09-19 18:16] LABS: Platelet Count 1841 T/CUMM (130-400)
[2019-09-19 18:19] LABS: Eosinophils 2 % (0-10); Lymphocytes 13 % (20-55); Segmented Neutrophils 81 % (50-85); Total Cells Counted 100
[2019-09-19 18:20] LABS: Anisocytosis 1+; Hypochromasia 1+; Platelet Estimate Increased; Polychromasia Few; Target Cells 1+
[2019-09-19] MEDS ORDERED: ENOXAPARIN 80 MG/0.8 ML SYRINGE SUBCUT STA (19:57)
[2019-09-19] MEDS ORDERED: ALUMINUM/MAGNES/SIMETH MAX STR 30 ML UDCUP PO PRN (19:59)
[2019-09-19] MEDS ORDERED: ZALEPLON 5 MG CAPSULE PO PRN (19:59)
[2019-09-19] MEDS ORDERED: ACETAMINOPHEN 325 MG TABLET PO PRN (19:59)
[2019-09-19] MEDS ORDERED: ONDANSETRON 4 MG/2 ML VIAL IV PRN (19:59)
[2019-09-19] MEDS: ROSUVASTATIN 20 MG TABLET PO SCH (21:31)
[2019-09-20 03:01] LABS: Apearance,Urine CLEAR (Clear); Bilirubin,Urine Negative (Negative); Blood, Urine Negative (Negative); Glucose,Urine (UA) Negative (Negative); Hyaline Casts,Urine 13 /LPF (0-3); Ketones,Urine Negative (Negative); Mucus,Urine Occasional /LPF (Occasional); Nitrite,Urine Negative (Negative); Protein,Urine 30 MG/DL; RBC,Urine 1 /HPF (0-4); Squamous Epithelial Cell,Urine Occasional /HPF (0-10); Urine Color Yellow (Yellow); Urine Specific Gravity 1.018 (1.001-1.035); Urine Urobilinogen < 2.0 EU/DL (0.2-1.0); WBC,Urine 2 /HPF (0-6)
[2019-09-20 03:04] LABS: Barbiturates Screen,Urine Negative (Negative); Benzodiazepines Screen,Urine Negative (Negative); Cannabinoid Screen,Urine Negative (Negative); Opiate Screen,Urine Negative (Negative); Phencyclidine Screen,Urine Negative (Negative)
[2019-09-20 05:32] LABS: Risk Ratio 4.33; VLDL CHOLESTEROL 18.2 MG/DL
[2019-09-20 07:07] LABS: Basophils # 0.2 10*3/uL (0.0-0.2); Basophils % 0.9 % (0.0-0.8); Eosinophils % 3.8 % (0.00-10.9); Hematocrit 37.6 VOL% (42.0-52.0); Hemoglobin 11.3 GM/DL (14.0-18.0); Immature Granulocytes % 0.9 %; Immature Granulocytes Absolute 0.23 #; Lymphocytes # 2.9 10*3/uL (1.4-4.0); Lymphocytes % 10.6 % (21.2-54.2); Mean Corpuscular HGB Conc 30.1 GM/DL (32-36); Mean Corpuscular Volume 77.4 FL (87-102); Mean Platelet Volume 9.8 FL (9.6-12.0); Monocytes % 5.2 % (1.7-12.7); NRBC # 0.04 10*3/uL; Neutrophils % 78.6 % (38.7-73.9); Red Blood Count 4.86 MC/CUMM (3.8-5.5); Red Cell Distribution Width 20.4 % (9.3-17.3); White Blood Count 26.9 T/CUMM (4-12)
[2019-09-20 07:10] LABS: Platelet Count 1666 T/CUMM (130-400)
[2019-09-20 07:18] LABS: Calcium 8.6 MG/DL (8.5-10.1)
[2019-09-20 07:30] LABS: Platelet Estimate Increased
[2019-09-20] MEDS: METOPROLOL SUCCINATE XL 25 MG TABLET PO SCH (08:04)
[2019-09-20] MEDS: FUROSEMIDE 40 MG TABLET PO SCH (08:04)
[2019-09-20] MEDS: metOLazone 5 MG TABLET PO SCH (08:04)
[2019-09-20] MEDS: CLOPIDOGREL 75 MG TABLET PO SCH (08:04)
[2019-09-20] MEDS: SPIRONOLACTONE 25 MG TABLET PO SCH (08:04)
[2019-09-20] MEDS: AMIODARONE 200 MG TABLET PO SCH (08:04)
[2019-09-20] MEDS: PANTOPRAZOLE 40 MG TABLET PO SCH (08:04)
[2019-09-20] MEDS ORDERED: GLUCAGON 1 MG VIAL IM PRN (08:11)
[2019-09-20] MEDS ORDERED: DEXTROSE 50% 25 GM/50 ML VIAL IV PRN (08:11)
[2019-09-20] MEDS ORDERED: DEXTROSE 10% 250 ML BAG IV PRN (08:15)
[2019-09-20] MEDS ORDERED: ASPIRIN EC 81 MG TABLET PO SCH (09:00)
[2019-09-20] MEDS ORDERED: ENOXAPARIN 40 MG/0.4 ML SYRINGE SUBCUT SCH (09:00)
[2019-09-20] MEDS ORDERED: POTASSIUM CHLORIDE 20 MEQ TABLET PO ONE (12:59)
[2019-09-20] MEDS: ROSUVASTATIN 20 MG TABLET PO SCH (20:41)
[2019-09-21 05:58] LABS: Basophils # 0.2 10*3/uL (0.0-0.2); Basophils % 0.8 % (0.0-0.8); Eosinophils # 0.9 10*3/uL (0.0-0.87); Hematocrit 37.2 VOL% (42.0-52.0); Hemoglobin 11.2 GM/DL (14.0-18.0); Immature Granulocytes % 0.8 %; Immature Granulocytes Absolute 0.24 #; Lymphocytes # 2.1 10*3/uL (1.4-4.0); Lymphocytes % 7.3 % (21.2-54.2); Mean Corpuscular HGB Conc 30.1 GM/DL (32-36); Mean Corpuscular Volume 75.3 FL (87-102); Mean Platelet Volume 9.9 FL (9.6-12.0); NRBC # 0.05 10*3/uL; Neutrophils % 83.1 % (38.7-73.9); Red Blood Count 4.94 MC/CUMM (3.8-5.5); Red Cell Distribution Width 20.2 % (9.3-17.3); White Blood Count 28.3 T/CUMM (4-12)
[2019-09-21 06:04] LABS: Platelet Count 1693 T/CUMM (130-400)
[2019-09-21 06:18] LABS: Platelet Estimate Increased
[2019-09-21 06:19] LABS: Hypochromasia 1+
[2019-09-21 06:23] LABS: Calcium 8.9 MG/DL (8.5-10.1)
[2019-09-21] MEDS: AMIODARONE 200 MG TABLET PO SCH (08:10)
[2019-09-21] MEDS: METOPROLOL SUCCINATE XL 25 MG TABLET PO SCH (08:10)
[2019-09-21] MEDS: SPIRONOLACTONE 25 MG TABLET PO SCH (08:10)
[2019-09-21] MEDS: PANTOPRAZOLE 40 MG TABLET PO SCH (08:10)
[2019-09-21] MEDS: FUROSEMIDE 40 MG TABLET PO SCH (08:10)
[2019-09-21] MEDS: CLOPIDOGREL 75 MG TABLET PO SCH (08:10)
[2019-09-21] MEDS: metOLazone 5 MG TABLET PO SCH (08:10)
[2019-09-21] MEDS ORDERED: APIXABAN 5 MG TABLET PO SCH (09:00)
[2019-09-21 10:25] VITALS: BP 98/57
== END 2019-09-21 13:59 | disposition home or self-care (01) ==
LOC: N.EDINP 17:00 → N.ED 17:00 → N.5E 19:27
PROVIDERS: ADMIT Family Medicine; ATTEND Family Medicine

== ENCOUNTER 2020-01-31 14:55 | Inpatient (IN) ==
[2020-01-31] MEDS ORDERED: FUROSEMIDE 100 MG/10 ML VIAL IV STA (15:23)
[2020-01-31 15:30] LABS: Basophils # 0.3 10*3/uL (0.0-0.2); Basophils % 0.9 % (0.0-0.8); Eosinophils # 0.4 10*3/uL (0.0-0.87); Eosinophils % 1.3 % (0.00-10.9); Hematocrit 40.5 VOL% (42.0-52.0); Hemoglobin 11.8 GM/DL (14.0-18.0); Immature Granulocytes % 1.1 %; Immature Granulocytes Absolute 0.35 #; Lymphocytes # 2.6 10*3/uL (1.4-4.0); Lymphocytes % 7.7 % (21.2-54.2); Mean Corpuscular HGB Conc 29.1 GM/DL (32-36); Mean Corpuscular Volume 75.4 FL (87-102); Mean Platelet Volume 9.9 FL (9.6-12.0); Monocytes % 4.3 % (1.7-12.7); NRBC # 0.79 10*3/uL; Neutrophils % 84.7 % (38.7-73.9); Red Blood Count 5.37 MC/CUMM (3.8-5.5); Red Cell Distribution Width 21.1 % (9.3-17.3); White Blood Count 33.2 T/CUMM (4-12)
[2020-01-31 15:37] LABS: Platelet Count 1348 T/CUMM (130-400)
[2020-01-31 15:48] LABS: Albumin 3.1 G/DL (3.4-5.0); Bilirubin,Total 2.1 MG/DL (0.2-1.0); Calcium 8.8 MG/DL (8.5-10.1); Osmolality,Calculated 277.4 MOS/KG (273-304); Total Protein 8.8 G/DL (6.4-8.3)
[2020-01-31 16:08] LABS: Band Neutrophils 2 % (0-10); Eosinophils 1 % (0-10); Hypochromasia 1+; Lymphocytes 12 % (20-55); Microcytosis 1+; Nucleated Red Blood Cells 3 (0-5); Platelet Estimate Increased; Polychromasia Slight; Segmented Neutrophils 82 % (50-85); Total Cells Counted 100
[2020-01-31 19:03] LABS: Apearance,Urine CLEAR (Clear); Bacteria,Urine Occasional /HPF (Few); Bilirubin,Urine Negative (Negative); Blood, Urine Negative (Negative); Glucose,Urine (UA) Negative (Negative); Hyaline Casts,Urine 7 /LPF (0-3); Ketones,Urine Negative (Negative); Mucus,Urine Occasional /LPF (Occasional); Nitrite,Urine Negative (Negative); Protein,Urine Negative; RBC,Urine 6 /HPF (0-4); Squamous Epithelial Cell,Urine Occasional /HPF (0-10); Urine Color Yellow (Yellow); Urine Specific Gravity 1.006 (1.001-1.035); Urine Urobilinogen < 2.0 EU/DL (0.2-1.0); WBC,Urine 1 /HPF (0-6)
[2020-01-31] MEDS ORDERED: DEXTROSE 50% 25 GM/50 ML VIAL IV PRN ×2 (19:08)
[2020-01-31] MEDS ORDERED: GLUCAGON 1 MG VIAL IM PRN ×2 (19:08)
[2020-01-31] MEDS ORDERED: ONDANSETRON 4 MG/2 ML VIAL IV PRN (19:08)
[2020-01-31] MEDS ORDERED: ACETAMINOPHEN 325 MG TABLET PO PRN (19:08)
[2020-01-31] MEDS ORDERED: ALBUTEROL/IPRATROPIUM 3 ML NEB RESP TX PRN (19:14)
[2020-01-31 20:30] LABS: Hepatitis B Core IgM Quant 0.28 Index; Hepatitis B Surface Ag Quant < 0.10 Index; Hepatitis B Surface Ag Result Negative (Negative); Hepatitis C Virus Ab Quant 0.05 Index; Hepatitis C Virus Ab Result Negative (Negative)
[2020-01-31] MEDS: INSULIN REGULAR 100 UNIT/ML SUBCUT SCH (22:34)
[2020-01-31] MEDS: ENOXAPARIN 30 MG/0.3 ML SYRINGE SUBCUT SCH (23:14)
[2020-02-01 04:13] LABS: Basophils # 0.3 10*3/uL (0.0-0.2); Basophils % 0.8 % (0.0-0.8); Eosinophils # 0.5 10*3/uL (0.0-0.87); Eosinophils % 1.6 % (0.00-10.9); Hematocrit 36.1 VOL% (42.0-52.0); Hemoglobin 10.8 GM/DL (14.0-18.0); Immature Granulocytes % 0.8 %; Immature Granulocytes Absolute 0.26 #; Lymphocytes # 3.3 10*3/uL (1.4-4.0); Lymphocytes % 10.2 % (21.2-54.2); Mean Corpuscular HGB Conc 29.9 GM/DL (32-36); Mean Corpuscular Volume 74.1 FL (87-102); Mean Platelet Volume 9.9 FL (9.6-12.0); Monocytes % 3.8 % (1.7-12.7); NRBC # 0.77 10*3/uL; Neutrophils % 82.8 % (38.7-73.9); Red Blood Count 4.87 MC/CUMM (3.8-5.5); Red Cell Distribution Width 20.2 % (9.3-17.3); White Blood Count 32.5 T/CUMM (4-12)
[2020-02-01 04:23] LABS: Platelet Count 1240 T/CUMM (130-400)
[2020-02-01 04:49] LABS: Eosinophils 2 % (0-10); Hypochromasia 1+; Lymphocytes 8 % (20-55); Macrocytosis Slight; Nucleated Red Blood Cells 3 (0-5); Platelet Estimate Increased; Segmented Neutrophils 88 % (50-85); Target Cells Few; Total Cells Counted 100
[2020-02-01 04:50] LABS: Polychromasia Slight
[2020-02-01 05:07] LABS: Albumin 2.6 G/DL (3.4-5.0); Bilirubin,Total 1.5 MG/DL (0.2-1.0); Calcium 8.7 MG/DL (8.5-10.1); Risk Ratio 7.93; VLDL CHOLESTEROL 16.6 MG/DL
[2020-02-01] MEDS ORDERED: FUROSEMIDE 40 MG/4 ML VIAL IV SCH (08:00)
[2020-02-01] MEDS ORDERED: metOLazone 5 MG TABLET PO SCH (09:00)
[2020-02-01] MEDS: AMIODARONE 200 MG TABLET PO SCH (09:15)
[2020-02-01] MEDS: ASPIRIN EC 81 MG TABLET PO SCH (09:15)
[2020-02-01] MEDS: CLOPIDOGREL 75 MG TABLET PO SCH (09:15)
[2020-02-01] MEDS: PANTOPRAZOLE 40 MG TABLET PO SCH (09:15)
[2020-02-01] MEDS: METOPROLOL SUCCINATE XL 25 MG TABLET PO SCH (09:15)
[2020-02-01] MEDS: INSULIN REGULAR 100 UNIT/ML SUBCUT SCH ×4 (09:17→20:58)
[2020-02-01] MEDS: DOBUTamine 500 MG/250 ML PREMIX IV SCH (10:21)
[2020-02-01] MEDS ORDERED: POTASSIUM CHLORIDE 20 MEQ TABLET PO ONE (11:03)
[2020-02-01] MEDS ORDERED: guaiFENesin 200 MG/10 ML UDCUP PO PRN (13:04)
[2020-02-01] MEDS: ENOXAPARIN 30 MG/0.3 ML SYRINGE SUBCUT SCH (20:59)
[2020-02-02 04:18] LABS: Basophils # 0.2 10*3/uL (0.0-0.2); Basophils % 0.7 % (0.0-0.8); Eosinophils # 0.7 10*3/uL (0.0-0.87); Eosinophils % 2.2 % (0.00-10.9); Hematocrit 35.7 VOL% (42.0-52.0); Hemoglobin 10.7 GM/DL (14.0-18.0); Immature Granulocytes % 0.9 %; Immature Granulocytes Absolute 0.31 #; Lymphocytes # 2.8 10*3/uL (1.4-4.0); Lymphocytes % 8.4 % (21.2-54.2); Mean Corpuscular Volume 73.6 FL (87-102); Monocytes % 5.4 % (1.7-12.7); NRBC # 0.52 10*3/uL; Neutrophils % 82.4 % (38.7-73.9); Red Blood Count 4.85 MC/CUMM (3.8-5.5); White Blood Count 32.9 T/CUMM (4-12)
[2020-02-02 04:20] LABS: Platelet Count 1196 T/CUMM (130-400)
[2020-02-02 04:40] LABS: Calcium 8.4 MG/DL (8.5-10.1); Osmolality,Calculated 282.1 MOS/KG (273-304)
[2020-02-02 04:43] LABS: Albumin 2.6 G/DL (3.4-5.0); Bilirubin,Total 1.2 MG/DL (0.2-1.0); Calcium 8.4 MG/DL (8.5-10.1); Osmolality,Calculated 283.1 MOS/KG (273-304); Total Protein 7.9 G/DL (6.4-8.3)
[2020-02-02 04:44] LABS: Band Neutrophils 1 % (0-10); Hypochromasia 2+; Lymphocytes 7 % (20-55); Nucleated Red Blood Cells 1 (0-5); Platelet Estimate Increased; Segmented Neutrophils 89 % (50-85); Total Cells Counted 100
[2020-02-02 04:45] LABS: Macrocytosis Slight; Polychromasia Slight
[2020-02-02] MEDS: INSULIN REGULAR 100 UNIT/ML SUBCUT SCH ×4 (08:06→20:29)
[2020-02-02] MEDS: CLOPIDOGREL 75 MG TABLET PO SCH (09:14)
[2020-02-02] MEDS: AMIODARONE 200 MG TABLET PO SCH (09:14)
[2020-02-02] MEDS: ASPIRIN EC 81 MG TABLET PO SCH (09:15)
[2020-02-02] MEDS: PANTOPRAZOLE 40 MG TABLET PO SCH (09:16)
[2020-02-02] MEDS: POTASSIUM CHLORIDE 20 MEQ TABLET PO SCH ×2 (09:16→20:28)
[2020-02-02] MEDS: SPIRONOLACTONE 25 MG TABLET PO SCH (09:16)
[2020-02-02] MEDS: METOPROLOL SUCCINATE XL 25 MG TABLET PO SCH (09:22)
[2020-02-02] MEDS: DOBUTamine 500 MG/250 ML PREMIX IV SCH (13:25)
[2020-02-02] MEDS ORDERED: POTASSIUM CHLORIDE 20 MEQ/15 ML UDCUP PO ONE (13:26)
[2020-02-02 14:13] LABS: % Iron Saturation 4.3 % (18-50); Ferritin 74.5 ng/ml (26-388)
[2020-02-02] MEDS: FERROUS SULFATE 325 MG TABLET PO SCH (14:48)
[2020-02-02] MEDS: ENOXAPARIN 30 MG/0.3 ML SYRINGE SUBCUT SCH (20:29)
[2020-02-03 06:00] LABS: Albumin 2.7 G/DL (3.4-5.0); Bilirubin,Total 1.5 MG/DL (0.2-1.0); Calcium 8.6 MG/DL (8.5-10.1); Total Protein 8.3 G/DL (6.4-8.3)
[2020-02-03] MEDS: INSULIN REGULAR 100 UNIT/ML SUBCUT SCH ×4 (08:18→21:12)
[2020-02-03] MEDS: PANTOPRAZOLE 40 MG TABLET PO SCH (08:19)
[2020-02-03] MEDS: AMIODARONE 200 MG TABLET PO SCH (08:19)
[2020-02-03] MEDS: METOPROLOL SUCCINATE XL 25 MG TABLET PO SCH (08:19)
[2020-02-03] MEDS: SPIRONOLACTONE 25 MG TABLET PO SCH (08:20)
[2020-02-03] MEDS: FERROUS SULFATE 325 MG TABLET PO SCH (08:20)
[2020-02-03] MEDS: ASPIRIN EC 81 MG TABLET PO SCH (08:20)
[2020-02-03] MEDS: POTASSIUM CHLORIDE 20 MEQ TABLET PO SCH ×2 (08:20→21:18)
[2020-02-03] MEDS: CLOPIDOGREL 75 MG TABLET PO SCH (08:24)
[2020-02-03] MEDS: ENOXAPARIN 30 MG/0.3 ML SYRINGE SUBCUT SCH (21:18)
[2020-02-04 06:38] LABS: Albumin 2.9 G/DL (3.4-5.0); Bilirubin,Total 1.8 MG/DL (0.2-1.0); Calcium 8.8 MG/DL (8.5-10.1); Osmolality,Calculated 269.8 MOS/KG (273-304); Total Protein 8.9 G/DL (6.4-8.3)
[2020-02-04 06:43] LABS: Basophils # 0.2 10*3/uL (0.0-0.2); Basophils % 0.6 % (0.0-0.8); Eosinophils # 0.4 10*3/uL (0.0-0.87); Eosinophils % 1.3 % (0.00-10.9); Hematocrit 39.8 VOL% (42.0-52.0); Hemoglobin 11.8 GM/DL (14.0-18.0); Immature Granulocytes % 0.8 %; Immature Granulocytes Absolute 0.25 #; Lymphocytes # 2.4 10*3/uL (1.4-4.0); Lymphocytes % 7.7 % (21.2-54.2); Mean Corpuscular HGB Conc 29.6 GM/DL (32-36); Mean Corpuscular Volume 74.4 FL (87-102); Mean Platelet Volume 9.9 FL (9.6-12.0); Monocytes % 4.7 % (1.7-12.7); Neutrophils % 84.9 % (38.7-73.9); Red Blood Count 5.35 MC/CUMM (3.8-5.5); White Blood Count 30.7 T/CUMM (4-12)
[2020-02-04 06:47] LABS: Platelet Count 1291 T/CUMM (130-400)
[2020-02-04 06:54] LABS: Band Neutrophils 2 % (0-10); Eosinophils 2 % (0-10); Lymphocytes 9 % (20-55); Nucleated Red Blood Cells 4 (0-5); Platelet Estimate Increased; Segmented Neutrophils 84 % (50-85); Total Cells Counted 100
[2020-02-04 06:55] LABS: Hypochromasia 1+; Macrocytosis Slight
[2020-02-04] MEDS: DOBUTamine 500 MG/250 ML PREMIX IV SCH ×2 (07:03→13:32)
[2020-02-04] MEDS: INSULIN REGULAR 100 UNIT/ML SUBCUT SCH ×4 (09:21→21:50)
[2020-02-04] MEDS: METOPROLOL SUCCINATE XL 25 MG TABLET PO SCH (09:22)
[2020-02-04] MEDS: AMIODARONE 200 MG TABLET PO SCH (09:22)
[2020-02-04] MEDS: SPIRONOLACTONE 25 MG TABLET PO SCH (09:23)
[2020-02-04] MEDS: PANTOPRAZOLE 40 MG TABLET PO SCH (09:23)
[2020-02-04] MEDS: CLOPIDOGREL 75 MG TABLET PO SCH (09:23)
[2020-02-04] MEDS: FERROUS SULFATE 325 MG TABLET PO SCH (09:24)
[2020-02-04] MEDS: ASPIRIN EC 81 MG TABLET PO SCH (09:24)
[2020-02-04] MEDS: POTASSIUM CHLORIDE 20 MEQ TABLET PO SCH ×2 (09:24→21:52)
[2020-02-04] MEDS: ENOXAPARIN 30 MG/0.3 ML SYRINGE SUBCUT SCH (21:52)
[2020-02-05 05:57] LABS: Albumin 2.7 G/DL (3.4-5.0); Bilirubin,Total 1.5 MG/DL (0.2-1.0); Calcium 8.5 MG/DL (8.5-10.1); Osmolality,Calculated 269.7 MOS/KG (273-304); Total Protein 8.1 G/DL (6.4-8.3)
[2020-02-05] MEDS: DOBUTamine 500 MG/250 ML PREMIX IV SCH (06:33)
[2020-02-05] MEDS: INSULIN REGULAR 100 UNIT/ML SUBCUT SCH ×4 (07:47→21:23)
[2020-02-05 08:25] LABS: Basophils # 0.2 10*3/uL (0.0-0.2); Basophils % 0.7 % (0.0-0.8); Red Cell Distribution Width 20.6 % (9.3-17.3)
[2020-02-05 08:33] LABS: Eosinophils # 0.6 10*3/uL (0.0-0.87); Eosinophils % 1.9 % (0.00-10.9); Hematocrit 38.9 VOL% (42.0-52.0); Hemoglobin 11.7 GM/DL (14.0-18.0); Immature Granulocytes % 0.8 %; Immature Granulocytes Absolute 0.24 #; Lymphocytes # 2.2 10*3/uL (1.4-4.0); Lymphocytes % 7.4 % (21.2-54.2); Mean Corpuscular HGB Conc 30.1 GM/DL (32-36); Mean Corpuscular Volume 73.4 FL (87-102); Mean Platelet Volume 9.9 FL (9.6-12.0); Monocytes % 3.7 % (1.7-12.7); NRBC # 0.25 10*3/uL; Neutrophils % 85.5 % (38.7-73.9); White Blood Count 30.2 T/CUMM (4-12)
[2020-02-05 08:36] LABS: Platelet Count 1242 T/CUMM (130-400)
[2020-02-05 09:02] LABS: Band Neutrophils 2 % (0-10); Eosinophils 1 % (0-10); Lymphocytes 6 % (20-55); Segmented Neutrophils 90 % (50-85); Total Cells Counted 100
[2020-02-05 09:03] LABS: Hypochromasia 2+
[2020-02-05 09:04] LABS: Anisocytosis 1+; Macrocytosis 1+; Target Cells Few
[2020-02-05 09:05] LABS: Platelet Estimate Increased; Polychromasia Slight
[2020-02-05] MEDS: METOPROLOL SUCCINATE XL 25 MG TABLET PO SCH (09:18)
[2020-02-05] MEDS: CLOPIDOGREL 75 MG TABLET PO SCH (09:19)
[2020-02-05] MEDS: FERROUS SULFATE 325 MG TABLET PO SCH (09:19)
[2020-02-05] MEDS: PANTOPRAZOLE 40 MG TABLET PO SCH (09:19)
[2020-02-05] MEDS: POTASSIUM CHLORIDE 20 MEQ TABLET PO SCH ×2 (09:19→21:22)
[2020-02-05] MEDS: ASPIRIN EC 81 MG TABLET PO SCH (09:19)
[2020-02-05] MEDS: AMIODARONE 200 MG TABLET PO SCH (09:19)
[2020-02-05] MEDS: SPIRONOLACTONE 25 MG TABLET PO SCH (09:19)
[2020-02-05] MEDS: ENOXAPARIN 30 MG/0.3 ML SYRINGE SUBCUT SCH (21:21)
[2020-02-06 05:34] LABS: Basophils # 0.2 10*3/uL (0.0-0.2); Basophils % 0.6 % (0.0-0.8); Eosinophils # 0.3 10*3/uL (0.0-0.87); Eosinophils % 0.9 % (0.00-10.9); Hemoglobin 11.1 GM/DL (14.0-18.0); Immature Granulocytes % 0.9 %; Immature Granulocytes Absolute 0.26 #; Lymphocytes # 2.5 10*3/uL (1.4-4.0); Lymphocytes % 8.9 % (21.2-54.2); Mean Corpuscular Volume 74.3 FL (87-102); Mean Platelet Volume 9.9 FL (9.6-12.0); Neutrophils % 84.7 % (38.7-73.9); Red Blood Count 4.98 MC/CUMM (3.8-5.5); Red Cell Distribution Width 20.6 % (9.3-17.3); White Blood Count 28.3 T/CUMM (4-12)
[2020-02-06 05:45] LABS: Platelet Count 1211 T/CUMM (130-400)
[2020-02-06 06:11] LABS: Calcium 8.6 MG/DL (8.5-10.1); Osmolality,Calculated 275.5 MOS/KG (273-304)
[2020-02-06 06:17] LABS: Anisocytosis 1+; Eosinophils 1 % (0-10); Hypochromasia 2+; Lymphocytes 7 % (20-55); Macrocytosis 1+; Nucleated Red Blood Cells 5 (0-5); Segmented Neutrophils 87 % (50-85); Total Cells Counted 100
[2020-02-06 06:18] LABS: Platelet Estimate Increased; Polychromasia Slight; Target Cells Few
[2020-02-06 06:20] LABS: Albumin 2.7 G/DL (3.4-5.0); Bilirubin,Direct 0.45 MG/DL (0.0-0.20); Bilirubin,Total 1.4 MG/DL (0.2-1.0); Total Protein 8.3 G/DL (6.4-8.3)
[2020-02-06] MEDS: DOBUTamine 500 MG/250 ML PREMIX IV SCH ×2 (07:01→14:08)
[2020-02-06] MEDS ORDERED: DOCUSATE SODIUM 100 MG CAPSULE PO PRN (08:25)
[2020-02-06] MEDS: INSULIN REGULAR 100 UNIT/ML SUBCUT SCH ×4 (09:19→21:03)
[2020-02-06] MEDS: POTASSIUM CHLORIDE 20 MEQ TABLET PO SCH ×2 (09:20→21:04)
[2020-02-06] MEDS: CLOPIDOGREL 75 MG TABLET PO SCH (09:20)
[2020-02-06] MEDS: AMIODARONE 200 MG TABLET PO SCH (09:20)
[2020-02-06] MEDS: SPIRONOLACTONE 25 MG TABLET PO SCH (09:20)
[2020-02-06] MEDS: PANTOPRAZOLE 40 MG TABLET PO SCH (09:20)
[2020-02-06] MEDS: FERROUS SULFATE 325 MG TABLET PO SCH (09:21)
[2020-02-06] MEDS: METOPROLOL SUCCINATE XL 25 MG TABLET PO SCH (09:21)
[2020-02-06] MEDS: ASPIRIN EC 81 MG TABLET PO SCH (09:21)
[2020-02-06] MEDS: ENOXAPARIN 30 MG/0.3 ML SYRINGE SUBCUT SCH (21:04)
[2020-02-07 05:57] LABS: Basophils # 0.2 10*3/uL (0.0-0.2); Basophils % 0.8 % (0.0-0.8); Eosinophils # 0.5 10*3/uL (0.0-0.87); Eosinophils % 1.9 % (0.00-10.9); Hematocrit 35.9 VOL% (42.0-52.0); Hemoglobin 10.7 GM/DL (14.0-18.0); Immature Granulocytes % 0.7 %; Immature Granulocytes Absolute 0.18 #; Lymphocytes # 2.8 10*3/uL (1.4-4.0); Mean Corpuscular HGB Conc 29.8 GM/DL (32-36); Mean Corpuscular Volume 74.8 FL (87-102); Mean Platelet Volume 9.8 FL (9.6-12.0); Monocytes % 4.3 % (1.7-12.7); NRBC # 0.18 10*3/uL; Neutrophils % 82.3 % (38.7-73.9); Red Cell Distribution Width 20.9 % (9.3-17.3); White Blood Count 27.5 T/CUMM (4-12)
[2020-02-07 06:06] LABS: Platelet Count 1138 T/CUMM (130-400)
[2020-02-07 06:09] LABS: Albumin 2.6 G/DL (3.4-5.0); Bilirubin,Total 0.9 MG/DL (0.2-1.0); Calcium 8.6 MG/DL (8.5-10.1); Osmolality,Calculated 279.1 MOS/KG (273-304); Total Protein 8.1 G/DL (6.4-8.3)
[2020-02-07 06:22] LABS: Platelet Estimate Increased
[2020-02-07 06:26] LABS: Anisocytosis 1+; Smudge Cells Few; Target Cells 1+
[2020-02-07 06:27] LABS: Giant Platelets Few; Misc Morphology 12
[2020-02-07 06:28] LABS: Macrocytosis Slight
[2020-02-07] MEDS ORDERED: metOLazone 5 MG TABLET PO SCH (09:00)
[2020-02-07] MEDS: CLOPIDOGREL 75 MG TABLET PO SCH (09:10)
[2020-02-07] MEDS: FERROUS SULFATE 325 MG TABLET PO SCH (09:10)
[2020-02-07] MEDS: METOPROLOL SUCCINATE XL 25 MG TABLET PO SCH (09:10)
[2020-02-07] MEDS: PANTOPRAZOLE 40 MG TABLET PO SCH (09:10)
[2020-02-07] MEDS: SPIRONOLACTONE 25 MG TABLET PO SCH (09:10)
[2020-02-07] MEDS: POTASSIUM CHLORIDE 20 MEQ TABLET PO SCH ×2 (09:10→20:39)
[2020-02-07] MEDS: AMIODARONE 200 MG TABLET PO SCH (09:10)
[2020-02-07] MEDS: ASPIRIN EC 81 MG TABLET PO SCH (09:10)
[2020-02-07] MEDS: INSULIN REGULAR 100 UNIT/ML SUBCUT SCH ×4 (09:13→20:35)
[2020-02-07] MEDS ORDERED: FUROSEMIDE 20 MG/2 ML VIAL IV ONE (13:26)
[2020-02-07] MEDS: ENOXAPARIN 30 MG/0.3 ML SYRINGE SUBCUT SCH (20:39)
[2020-02-08 05:45] LABS: Albumin 2.7 G/DL (3.4-5.0); Bilirubin,Total 1.6 MG/DL (0.2-1.0); Calcium 9.2 MG/DL (8.5-10.1); Osmolality,Calculated 276.2 MOS/KG (273-304); Total Protein 8.3 G/DL (6.4-8.3)
[2020-02-08] MEDS ORDERED: FUROSEMIDE 40 MG TABLET PO SCH (09:00)
[2020-02-08] MEDS: INSULIN REGULAR 100 UNIT/ML SUBCUT SCH ×3 (09:25→17:22)
[2020-02-08] MEDS: SPIRONOLACTONE 25 MG TABLET PO SCH (09:26)
[2020-02-08] MEDS: METOPROLOL SUCCINATE XL 25 MG TABLET PO SCH (09:26)
[2020-02-08] MEDS: ASPIRIN EC 81 MG TABLET PO SCH (09:26)
[2020-02-08] MEDS: POTASSIUM CHLORIDE 20 MEQ TABLET PO SCH ×2 (09:26→16:07)
[2020-02-08] MEDS: AMIODARONE 200 MG TABLET PO SCH (09:26)
[2020-02-08] MEDS: CLOPIDOGREL 75 MG TABLET PO SCH (09:26)
[2020-02-08] MEDS: FERROUS SULFATE 325 MG TABLET PO SCH (09:26)
[2020-02-08] MEDS: PANTOPRAZOLE 40 MG TABLET PO SCH (09:26)
[2020-02-08 16:31] VITALS: BP 92/56
== END 2020-02-08 15:45 | disposition home or self-care (01) | DRG 291 ==
LOC: N.ED 14:55 → SUATTDRO 19:07 → N.EDINP 19:07 → N.TELES 22:18 → N.5E 02-08 19:05 → UNDODISIN 02-14 16:42
PROVIDERS: ADMIT Internal Medicine; ATTEND Internal Medicine

== ENCOUNTER 2020-04-22 14:09 | Inpatient (IN) ==
[2020-04-22 14:34] LABS: Basophils # 0.2 10*3/uL (0.0-0.2); Basophils % 0.7 % (0.0-0.8); Eosinophils # 0.4 10*3/uL (0.0-0.87); Eosinophils % 1.4 % (0.00-10.9); Hematocrit 44.3 VOL% (42.0-52.0); Hemoglobin 14.5 GM/DL (14.0-18.0); Immature Granulocytes % 0.9 %; Immature Granulocytes Absolute 0.27 #; Lymphocytes # 1.9 10*3/uL (1.4-4.0); Lymphocytes % 6.3 % (21.2-54.2); Mean Corpuscular HGB Conc 32.7 GM/DL (32-36); Mean Corpuscular Volume 84.9 FL (87-102); Mean Platelet Volume 9.5 FL (9.6-12.0); Monocytes % 4.4 % (1.7-12.7); NRBC # 0.03 10*3/uL; Neutrophils % 86.3 % (38.7-73.9); Red Blood Count 5.22 MC/CUMM (3.8-5.5); Red Cell Distribution Width 26.3 % (9.3-17.3); White Blood Count 29.5 T/CUMM (4-12)
[2020-04-22 14:39] LABS: Platelet Count 1182 T/CUMM (130-400)
[2020-04-22 14:55] LABS: Bilirubin,Total 1.8 MG/DL (0.2-1.0); Calcium 9.2 MG/DL (8.5-10.1); Osmolality,Calculated 273.4 MOS/KG (273-304); Potassium 2.8 MMOL/L (3.5-5.1); Total Protein 9.2 G/DL (6.4-8.3)
[2020-04-22] MEDS ORDERED: AMIODARONE INJ 150 MG in DEXTROSE 5% 100 ML IV ONE (14:57)
[2020-04-22] MEDS ORDERED: AMIODARONE 450 MG/9 ML VIAL IV ONE (14:57)
[2020-04-22] MEDS ORDERED: AMIODARONE 150 MG/3 ML VIAL ONE (14:57)
[2020-04-22] MEDS ORDERED: AMIODARONE INJ 450 MG in DEXTROSE 5% 241 ML IV SCH (15:00)
[2020-04-22 15:11] LABS: INR 1.2; PT Patient Result 12.4 SECS (9.8-11.9); Partial Thromboplastin Time 30.5 SECS (23.9-33.8)
[2020-04-22 15:25] LABS: Eosinophils 2 % (0-10); Lymphocytes 6 % (20-55); Segmented Neutrophils 88 % (50-85); Total Cells Counted 100
[2020-04-22 15:26] LABS: Hypochromasia 2+; Polychromasia 1+; Target Cells 1+
[2020-04-22 15:27] LABS: Platelet Estimate Increased
[2020-04-22] MEDS ORDERED: POTASSIUM CHLORIDE 20 MEQ TABLET PO STA (16:15)
[2020-04-22 17:17] LABS: Bilirubin,Urine Negative (Negative); Blood, Urine Negative (Negative); Glucose,Urine (UA) Negative (Negative); Hyaline Casts,Urine 13 /LPF (0-3); Ketones,Urine Negative (Negative); Mucus,Urine Occasional /LPF (Occasional); Nitrite,Urine Negative (Negative); Protein,Urine Negative; RBC,Urine 1 /HPF (0-4); Urine Appearance CLEAR (Clear); Urine Color Straw (Yellow); Urine Specific Gravity 1.006 (1.001-1.035); Urine Urobilinogen < 2.0 EU/DL (0.2-1.0)
[2020-04-22] MEDS ORDERED: MAGNESIUM SULF RIDER 4 GM in PREMIX 1 EACH IV PRN (17:43)
[2020-04-22] MEDS ORDERED: MAGNESIUM SULF RIDER 2 GM in PREMIX 1 EACH IV PRN (17:43)
[2020-04-22] MEDS ORDERED: cefTRIAXone 1,000 MG in SYRINGE 1 EACH IV STA (17:43)
[2020-04-22] MEDS: AMIODARONE INJ 450 MG in DEXTROSE 5% 241 ML IV SCH (23:30)
[2020-04-23 01:50] LABS: Basophils # 0.2 10*3/uL (0.0-0.2); Basophils % 0.7 % (0.0-0.8); Eosinophils # 0.5 10*3/uL (0.0-0.87); Eosinophils % 1.7 % (0.00-10.9); Hemoglobin 14.1 GM/DL (14.0-18.0); Immature Granulocytes % 0.7 %; Lymphocytes # 2.2 10*3/uL (1.4-4.0); Lymphocytes % 8.2 % (21.2-54.2); Mean Corpuscular Volume 86.4 FL (87-102); Mean Platelet Volume 9.8 FL (9.6-12.0); Monocytes % 4.7 % (1.7-12.7); NRBC # 0.02 10*3/uL; Red Blood Count 5.09 MC/CUMM (3.8-5.5); Red Cell Distribution Width 25.6 % (9.3-17.3); White Blood Count 27.2 T/CUMM (4-12)
[2020-04-23 02:00] LABS: Platelet Count 1071 T/CUMM (130-400)
[2020-04-23 02:08] LABS: Calcium 8.9 MG/DL (8.5-10.1); Osmolality,Calculated 276.1 MOS/KG (273-304)
[2020-04-23 02:24] LABS: Potassium 2.5 MMOL/L (3.5-5.1)
[2020-04-23 03:08] LABS: Eosinophils 1 % (0-10); Hypochromasia 1+; Lymphocytes 7 % (20-55); Microcytosis 1+; Platelet Estimate Increased; Segmented Neutrophils 89 % (50-85); Total Cells Counted 100
[2020-04-23 03:09] LABS: Anisocytosis 2+; Polychromasia Few; Target Cells 1+
[2020-04-23] MEDS: POTASSIUM CHLORIDE 20 MEQ TABLET PO PRN ×6 (04:04→23:51)
[2020-04-23] MEDS ORDERED: SPIRONOLACTONE 25 MG TABLET PO SCH (09:45)
[2020-04-23] MEDS: METOPROLOL SUCCINATE XL 25 MG TABLET PO SCH (11:27)
[2020-04-23] MEDS: AMIODARONE INJ 450 MG in DEXTROSE 5% 241 ML IV SCH (11:36)
[2020-04-23] MEDS: FUROSEMIDE 40 MG/4 ML VIAL IV SCH ×2 (11:40→17:02)
[2020-04-23] MEDS ORDERED: POTASSIUM CHLORIDE RIDER 10 MEQ in PREMIX 1 EACH IV PRN (14:00)
[2020-04-23] MEDS ORDERED: MAGNESIUM SULF RIDER 2 GM in PREMIX 1 EACH IV PRN (14:00)
[2020-04-23 14:13] LABS: Calcium 9.2 MG/DL (8.5-10.1); Osmolality,Calculated 275.5 MOS/KG (273-304); Potassium 3.5 MMOL/L (3.5-5.1)
[2020-04-23] MEDS: ONDANSETRON 4 MG/2 ML VIAL IV PRN (20:52)
[2020-04-24] MEDS: AMIODARONE INJ 450 MG in DEXTROSE 5% 241 ML IV SCH (02:49)
[2020-04-24 05:31] LABS: Basophils # 0.3 10*3/uL (0.0-0.2); Basophils % 0.8 % (0.0-0.8); Eosinophils # 0.2 10*3/uL (0.0-0.87); Eosinophils % 0.7 % (0.00-10.9); Hematocrit 45.5 VOL% (42.0-52.0); Hemoglobin 14.5 GM/DL (14.0-18.0); Immature Granulocytes % 1.5 %; Immature Granulocytes Absolute 0.49 #; Lymphocytes # 3.5 10*3/uL (1.4-4.0); Lymphocytes % 10.8 % (21.2-54.2); Mean Corpuscular HGB Conc 31.9 GM/DL (32-36); Mean Platelet Volume 9.8 FL (9.6-12.0); Monocytes % 5.1 % (1.7-12.7); NRBC # 0.07 10*3/uL; Neutrophils % 81.1 % (38.7-73.9); Red Blood Count 5.23 MC/CUMM (3.8-5.5); Red Cell Distribution Width 25.2 % (9.3-17.3); White Blood Count 32.6 T/CUMM (4-12)
[2020-04-24 05:48] LABS: Platelet Count 1085 T/CUMM (130-400)
[2020-04-24 05:52] LABS: Eosinophils 1 % (0-10); INR 1.5; Lymphocytes 5 % (20-55); Nucleated Red Blood Cells 1 (0-5); PT Patient Result 15.5 SECS (9.8-11.9); Platelet Estimate Increased; Segmented Neutrophils 90 % (50-85); Total Cells Counted 100
[2020-04-24 05:53] LABS: Macrocytosis Slight; Polychromasia Slight
[2020-04-24 06:06] LABS: Calcium 9.2 MG/DL (8.5-10.1); Osmolality,Calculated 273.5 MOS/KG (273-304); Potassium 3.3 MMOL/L (3.5-5.1)
[2020-04-24 06:11] LABS: Troponin I 0.045 NG/ML (0.00-0.045)
[2020-04-24] MEDS: SODIUM CHLORIDE 0.45% 1,000 ML IV SCH (08:50)
[2020-04-24] MEDS: POTASSIUM CHLORIDE 20 MEQ TABLET PO SCH ×2 (08:51→21:16)
[2020-04-24] MEDS: CLOPIDOGREL 75 MG TABLET PO SCH (08:52)
[2020-04-24] MEDS: METOPROLOL SUCCINATE XL 25 MG TABLET PO SCH (08:52)
[2020-04-24] MEDS: ENOXAPARIN 40 MG/0.4 ML SYRINGE SUBCUT SCH (08:53)
[2020-04-24] MEDS ORDERED: METOPROLOL SUCCINATE XL 25 MG TABLET PO SCH (09:00)
[2020-04-24] MEDS ORDERED: diphenhydrAMINE CAP 25 MG CAPSULE PO ONE (09:00)
[2020-04-24] MEDS: FUROSEMIDE 40 MG/4 ML VIAL IV SCH (09:00)
[2020-04-24] MEDS ORDERED: DIAZEPAM 5 MG TABLET PO ONE (09:00)
[2020-04-24 15:43] LABS: Calcium 9.2 MG/DL (8.5-10.1); Osmolality,Calculated 276.8 MOS/KG (273-304); Potassium 3.8 MMOL/L (3.5-5.1)
[2020-04-24] MEDS: ASPIRIN EC 81 MG TABLET PO SCH (15:56)
[2020-04-24] MEDS: AMIODARONE 200 MG TABLET PO SCH ×2 (15:56→21:16)
[2020-04-24] MEDS: ONDANSETRON 4 MG/2 ML VIAL IV PRN (18:55)
[2020-04-24] MEDS: FERROUS SULFATE 325 MG TABLET PO SCH (21:16)
[2020-04-24] MEDS: ASCORBIC ACID 500 MG TABLET PO SCH (21:16)
[2020-04-24] MEDS: ROSUVASTATIN 20 MG TABLET PO SCH (21:16)
[2020-04-25 05:08] LABS: Basophils # 0.2 10*3/uL (0.0-0.2); Basophils % 0.6 % (0.0-0.8); Eosinophils # 0.1 10*3/uL (0.0-0.87); Eosinophils % 0.4 % (0.00-10.9); Hematocrit 42.2 VOL% (42.0-52.0); Hemoglobin 13.7 GM/DL (14.0-18.0); Immature Granulocytes % 1.2 %; Immature Granulocytes Absolute 0.47 #; Lymphocytes # 3.1 10*3/uL (1.4-4.0); Mean Corpuscular HGB Conc 32.5 GM/DL (32-36); Mean Corpuscular Volume 85.9 FL (87-102); Mean Platelet Volume 10.1 FL (9.6-12.0); Monocytes % 5.6 % (1.7-12.7); NRBC # 0.11 10*3/uL; Neutrophils % 84.2 % (38.7-73.9); Red Blood Count 4.91 MC/CUMM (3.8-5.5); White Blood Count 39.1 T/CUMM (4-12)
[2020-04-25 05:10] LABS: Platelet Count 1034 T/CUMM (130-400)
[2020-04-25 05:24] LABS: Osmolality,Calculated 279.8 MOS/KG (273-304); Potassium 4.2 MMOL/L (3.5-5.1)
[2020-04-25 05:27] LABS: Lymphocytes 7 % (20-55); Platelet Estimate Increased; Segmented Neutrophils 86 % (50-85); Total Cells Counted 100
[2020-04-25 05:28] LABS: Macrocytosis Slight; Polychromasia Slight
[2020-04-25] MEDS ORDERED: DIAZEPAM 5 MG TABLET PO ONE (08:00)
[2020-04-25] MEDS ORDERED: diphenhydrAMINE CAP 25 MG CAPSULE PO ONE (08:00)
[2020-04-25] MEDS: ENOXAPARIN 40 MG/0.4 ML SYRINGE SUBCUT SCH (09:20)
[2020-04-25] MEDS: ASCORBIC ACID 500 MG TABLET PO SCH ×2 (09:21→20:32)
[2020-04-25] MEDS: POTASSIUM CHLORIDE 20 MEQ TABLET PO SCH ×2 (09:21→20:32)
[2020-04-25] MEDS: CLOPIDOGREL 75 MG TABLET PO SCH (09:21)
[2020-04-25] MEDS: AMIODARONE 200 MG TABLET PO SCH ×2 (09:22→20:32)
[2020-04-25] MEDS: ASPIRIN EC 81 MG TABLET PO SCH (09:22)
[2020-04-25] MEDS: METOPROLOL SUCCINATE XL 25 MG TABLET PO SCH (09:22)
[2020-04-25] MEDS: SODIUM CHLORIDE 0.45% 1,000 ML IV SCH (09:26)
[2020-04-25] MEDS ORDERED: ALUMINUM/MAGNES/SIMETH MAX STR 30 ML UDCUP PO PRN (16:05)
[2020-04-25] MEDS: ONDANSETRON 4 MG/2 ML VIAL IV PRN ×2 (17:36→21:51)
[2020-04-25] MEDS: ROSUVASTATIN 20 MG TABLET PO SCH (20:32)
[2020-04-25] MEDS: FERROUS SULFATE 325 MG TABLET PO SCH (20:33)
[2020-04-26] MEDS: SODIUM CHLORIDE 0.45% 1,000 ML IV SCH (06:16)
[2020-04-26 06:48] LABS: Basophils # 0.3 10*3/uL (0.0-0.2); Basophils % 0.7 % (0.0-0.8); Eosinophils # 0.2 10*3/uL (0.0-0.87); Eosinophils % 0.5 % (0.00-10.9); Hematocrit 42.3 VOL% (42.0-52.0); Hemoglobin 13.7 GM/DL (14.0-18.0); Immature Granulocytes % 1.7 %; Lymphocytes # 2.5 10*3/uL (1.4-4.0); Mean Corpuscular HGB Conc 32.4 GM/DL (32-36); Mean Platelet Volume 10.3 FL (9.6-12.0); Monocytes % 4.2 % (1.7-12.7); NRBC # 0.13 10*3/uL; Neutrophils % 85.9 % (38.7-73.9); Platelet Count 913 T/CUMM (130-400); Red Blood Count 4.92 MC/CUMM (3.8-5.5); Red Cell Distribution Width 25.6 % (9.3-17.3); White Blood Count 35.8 T/CUMM (4-12)
[2020-04-26 07:09] LABS: Calcium 8.5 MG/DL (8.5-10.1); Osmolality,Calculated 279.2 MOS/KG (273-304); Potassium 4.3 MMOL/L (3.5-5.1)
[2020-04-26 07:11] LABS: Eosinophils 1 % (0-10); Lymphocytes 5 % (20-55); Platelet Estimate Adequate; Segmented Neutrophils 91 % (50-85); Total Cells Counted 100
[2020-04-26 07:12] LABS: Macrocytosis Slight; Polychromasia Slight
[2020-04-26 07:51] LABS: Parathyroid Hormone Intact 110.7 PG/ML (18.4-80.1)
[2020-04-26] MEDS ORDERED: SODIUM CHLORIDE 0.9% 1,000 ML IV SCH (08:30)
[2020-04-26 09:30] LABS: Albumin 2.6 G/DL (3.4-5.0); Bilirubin,Total 2.7 MG/DL (0.2-1.0); Calcium 8.6 MG/DL (8.5-10.1); Osmolality,Calculated 280.1 MOS/KG (273-304); Potassium 4.3 MMOL/L (3.5-5.1); Thyroid Stimulating Hormone 1.65 uIU/ml (0.358-3.74); Total Protein 7.7 G/DL (6.4-8.3); Uric Acid 11.8 MG/DL (3.5-7.2)
[2020-04-26] MEDS: ASCORBIC ACID 500 MG TABLET PO SCH ×2 (09:36→21:09)
[2020-04-26] MEDS: AMIODARONE 200 MG TABLET PO SCH ×2 (09:36→21:09)
[2020-04-26] MEDS: ASPIRIN EC 81 MG TABLET PO SCH (09:36)
[2020-04-26] MEDS: POTASSIUM CHLORIDE 20 MEQ TABLET PO SCH ×2 (09:36→21:50)
[2020-04-26] MEDS: ENOXAPARIN 40 MG/0.4 ML SYRINGE SUBCUT SCH (09:37)
[2020-04-26] MEDS: CLOPIDOGREL 75 MG TABLET PO SCH (09:37)
[2020-04-26 09:47] LABS: Immunoglobulin A (Chem) 742 MG/DL (70-400); Immunoglobulin G (Chem) 1780 MG/DL (700-1600); Immunoglobulin M (Chem) 55 MG/DL (40-230); Total Protein (Chem) 7.7 G/DL (6.4-8.3)
[2020-04-26 10:00] LABS: Albumin (SPE) 3.7 G/DL (3.2-5.3); Albumin (SPE) Rel % 48.6 %; Alpha 1 (SPE) 0.3 G/DL (0.1-0.4); Alpha 1 (SPE) Rel % 3.6 %; Alpha 2 (SPE) 0.7 G/DL (0.4-1.0); Alpha 2 (SPE) Rel % 9.1 %; Beta (SPE) 0.8 G/DL (0.5-1.1); Beta (SPE) Rel % 10.4 %; Gamma (SPE) 2.2 G/DL (0.7-1.7); Gamma (SPE) Rel % 28.3 %
[2020-04-26] MEDS: SODIUM CHLORIDE 0.9% 1,000 ML IV SCH ×2 (10:06→21:50)
[2020-04-26] MEDS: ONDANSETRON 4 MG/2 ML VIAL IV PRN (15:34)
[2020-04-26] MEDS: SUCRALFATE 1 GM TABLET PO SCH (15:34)
[2020-04-26] MEDS: ROSUVASTATIN 20 MG TABLET PO SCH (21:09)
[2020-04-26] MEDS: FERROUS SULFATE 325 MG TABLET PO SCH (21:09)
[2020-04-27 05:10] LABS: Basophils # 0.2 10*3/uL (0.0-0.2); Basophils % 0.6 % (0.0-0.8); Eosinophils # 0.1 10*3/uL (0.0-0.87); Eosinophils % 0.4 % (0.00-10.9); Hematocrit 42.6 VOL% (42.0-52.0); Hemoglobin 13.8 GM/DL (14.0-18.0); Immature Granulocytes % 1.2 %; Immature Granulocytes Absolute 0.39 #; Lymphocytes # 2.2 10*3/uL (1.4-4.0); Lymphocytes % 6.4 % (21.2-54.2); Mean Corpuscular HGB Conc 32.4 GM/DL (32-36); Mean Corpuscular Volume 86.4 FL (87-102); Mean Platelet Volume 10.6 FL (9.6-12.0); Monocytes % 5.4 % (1.7-12.7); NRBC # 0.14 10*3/uL; Platelet Count 943 T/CUMM (130-400); Red Blood Count 4.93 MC/CUMM (3.8-5.5); Red Cell Distribution Width 25.8 % (9.3-17.3); White Blood Count 33.8 T/CUMM (4-12)
[2020-04-27 05:34] LABS: Lymphocytes 6 % (20-55); Macrocytosis Slight; Nucleated Red Blood Cells 2 (0-5); Platelet Estimate Increased; Polychromasia Slight; Segmented Neutrophils 90 % (50-85); Target Cells Few; Total Cells Counted 100
[2020-04-27 05:51] LABS: Calcium 8.5 MG/DL (8.5-10.1); Osmolality,Calculated 277.9 MOS/KG (273-304); Potassium 4.8 MMOL/L (3.5-5.1)
[2020-04-27] MEDS: SUCRALFATE 1 GM TABLET PO SCH ×2 (09:10→16:52)
[2020-04-27] MEDS: POTASSIUM CHLORIDE 20 MEQ TABLET PO SCH ×2 (09:10→21:16)
[2020-04-27] MEDS: ASCORBIC ACID 500 MG TABLET PO SCH ×2 (09:10→21:16)
[2020-04-27] MEDS: CLOPIDOGREL 75 MG TABLET PO SCH (09:11)
[2020-04-27] MEDS: ENOXAPARIN 40 MG/0.4 ML SYRINGE SUBCUT SCH (09:11)
[2020-04-27] MEDS: ASPIRIN EC 81 MG TABLET PO SCH (09:11)
[2020-04-27] MEDS: AMIODARONE 200 MG TABLET PO SCH (09:11)
[2020-04-27] MEDS ORDERED: DOBUTamine 500 MG/250 ML PREMIX IV PRN (09:50)
[2020-04-27] MEDS: cephALEXin 500 MG CAPSULE PO SCH ×2 (12:15→21:16)
[2020-04-27] MEDS ORDERED: DOBUTamine 500 MG/250 ML PREMIX IV SCH (17:00)
[2020-04-27] MEDS: ONDANSETRON 4 MG/2 ML VIAL IV PRN (17:50)
[2020-04-27] MEDS: FERROUS SULFATE 325 MG TABLET PO SCH (21:16)
[2020-04-28 05:59] LABS: Basophils # 0.2 10*3/uL (0.0-0.2); Basophils % 0.5 % (0.0-0.8); Eosinophils # 0.1 10*3/uL (0.0-0.87); Eosinophils % 0.3 % (0.00-10.9); Hematocrit 41.9 VOL% (42.0-52.0); Hemoglobin 13.7 GM/DL (14.0-18.0); Immature Granulocytes % 1.2 %; Immature Granulocytes Absolute 0.42 #; Lymphocytes % 5.9 % (21.2-54.2); Mean Corpuscular HGB Conc 32.7 GM/DL (32-36); Mean Platelet Volume 10.6 FL (9.6-12.0); Monocytes % 5.5 % (1.7-12.7); NRBC # 0.16 10*3/uL; Neutrophils % 86.6 % (38.7-73.9); Platelet Count 921 T/CUMM (130-400); Red Blood Count 4.87 MC/CUMM (3.8-5.5); Red Cell Distribution Width 25.6 % (9.3-17.3); White Blood Count 33.9 T/CUMM (4-12)
[2020-04-28 06:16] LABS: Calcium 8.2 MG/DL (8.5-10.1); Osmolality,Calculated 278.9 MOS/KG (273-304); Potassium 5.2 MMOL/L (3.5-5.1)
[2020-04-28 06:27] LABS: Burr Cells Slight; Hypochromasia Slight; Lymphocytes 6 % (20-55); Ovalocytes Slight; Platelet Estimate Increased; Segmented Neutrophils 88 % (50-85); Target Cells Few; Total Cells Counted 100
[2020-04-28 06:28] LABS: Macrocytosis Slight; Polychromasia Slight
[2020-04-28] MEDS: AMIODARONE 200 MG TABLET PO SCH (09:06)
[2020-04-28] MEDS: cephALEXin 500 MG CAPSULE PO SCH ×2 (09:06→20:47)
[2020-04-28] MEDS: ASCORBIC ACID 500 MG TABLET PO SCH ×2 (09:06→20:47)
[2020-04-28] MEDS: ASPIRIN EC 81 MG TABLET PO SCH (09:06)
[2020-04-28] MEDS: ONDANSETRON 4 MG/2 ML VIAL IV SCH ×3 (09:06→19:38)
[2020-04-28] MEDS: CLOPIDOGREL 75 MG TABLET PO SCH (09:06)
[2020-04-28] MEDS: SUCRALFATE 1 GM TABLET PO SCH ×2 (09:06→15:48)
[2020-04-28] MEDS: ENOXAPARIN 40 MG/0.4 ML SYRINGE SUBCUT SCH (09:07)
[2020-04-28] MEDS: DOBUTamine 500 MG/250 ML PREMIX IV SCH ×2 (09:11→23:37)
[2020-04-28 09:56] LABS: Immuno Free Light Chain Kappa 12.35 MG/DL (0.33-1.94); Immuno Free Light Chain Ratio 1.52 MG/DL (0.26-1.65)
[2020-04-28] MEDS: PANTOPRAZOLE 40 MG TABLET PO SCH (10:04)
[2020-04-29] MEDS: ONDANSETRON 4 MG/2 ML VIAL IV SCH ×4 (01:59→20:54)
[2020-04-29 05:27] LABS: Basophils # 0.1 10*3/uL (0.0-0.2); Basophils % 0.4 % (0.0-0.8); Eosinophils # 0.1 10*3/uL (0.0-0.87); Eosinophils % 0.3 % (0.00-10.9); Hematocrit 40.4 VOL% (42.0-52.0); Hemoglobin 13.2 GM/DL (14.0-18.0); Immature Granulocytes % 1.1 %; Immature Granulocytes Absolute 0.31 #; Lymphocytes # 1.1 10*3/uL (1.4-4.0); Lymphocytes % 3.6 % (21.2-54.2); Mean Corpuscular HGB Conc 32.7 GM/DL (32-36); Mean Corpuscular Volume 84.7 FL (87-102); Mean Platelet Volume 10.2 FL (9.6-12.0); Monocytes % 5.6 % (1.7-12.7); NRBC # 0.26 10*3/uL; Platelet Count 925 T/CUMM (130-400); Red Blood Count 4.77 MC/CUMM (3.8-5.5); Red Cell Distribution Width 25.3 % (9.3-17.3); White Blood Count 29.2 T/CUMM (4-12)
[2020-04-29 05:55] LABS: Calcium 8.3 MG/DL (8.5-10.1); Osmolality,Calculated 278.1 MOS/KG (273-304); Potassium 4.9 MMOL/L (3.5-5.1)
[2020-04-29 05:57] LABS: Band Neutrophils 1 % (0-10); Eosinophils 1 % (0-10); Hypochromasia 1+; Lymphocytes 5 % (20-55); Nucleated Red Blood Cells 4 (0-5); Segmented Neutrophils 92 % (50-85); Total Cells Counted 100
[2020-04-29 05:58] LABS: Acanthocytes Few; Anisocytosis 1+; Macrocytosis 1+; Target Cells Few
[2020-04-29 05:59] LABS: Platelet Estimate Increased; Polychromasia Slight
[2020-04-29] MEDS: DOBUTamine 500 MG/250 ML PREMIX IV SCH ×2 (06:29→22:58)
[2020-04-29] MEDS: cephALEXin 500 MG CAPSULE PO SCH ×2 (09:17→20:54)
[2020-04-29] MEDS: SUCRALFATE 1 GM TABLET PO SCH ×2 (09:17→17:02)
[2020-04-29] MEDS: CLOPIDOGREL 75 MG TABLET PO SCH (09:17)
[2020-04-29] MEDS: ASCORBIC ACID 500 MG TABLET PO SCH ×2 (09:17→20:54)
[2020-04-29] MEDS: ASPIRIN EC 81 MG TABLET PO SCH (09:17)
[2020-04-29] MEDS: AMIODARONE 200 MG TABLET PO SCH (09:17)
[2020-04-29] MEDS: PANTOPRAZOLE 40 MG TABLET PO SCH (09:17)
[2020-04-29] MEDS: ENOXAPARIN 30 MG/0.3 ML SYRINGE SUBCUT SCH (09:18)
[2020-04-29] MEDS ORDERED: FUROSEMIDE INJ 100 MG in SODIUM CHLORIDE 0.9% 90 ML IV SCH (10:30)
[2020-04-30] MEDS: ONDANSETRON 4 MG/2 ML VIAL IV SCH ×3 (02:48→13:22)
[2020-04-30] MEDS: DOBUTamine 500 MG/250 ML PREMIX IV SCH (04:44)
[2020-04-30 06:30] LABS: Basophils # 0.1 10*3/uL (0.0-0.2); Basophils % 0.4 % (0.0-0.8); Eosinophils # 0.1 10*3/uL (0.0-0.87); Eosinophils % 0.5 % (0.00-10.9); Hematocrit 40.6 VOL% (42.0-52.0); Hemoglobin 13.6 GM/DL (14.0-18.0); Immature Granulocytes % 0.8 %; Immature Granulocytes Absolute 0.21 #; Lymphocytes # 1.2 10*3/uL (1.4-4.0); Lymphocytes % 4.6 % (21.2-54.2); Mean Corpuscular HGB Conc 33.5 GM/DL (32-36); Mean Corpuscular Volume 83.5 FL (87-102); Mean Platelet Volume 10.4 FL (9.6-12.0); Monocytes % 6.7 % (1.7-12.7); NRBC # 0.34 10*3/uL; Platelet Count 959 T/CUMM (130-400); Red Blood Count 4.86 MC/CUMM (3.8-5.5); Red Cell Distribution Width 25.4 % (9.3-17.3); White Blood Count 26.6 T/CUMM (4-12)
[2020-04-30 06:59] LABS: Calcium 8.5 MG/DL (8.5-10.1); Osmolality,Calculated 276.5 MOS/KG (273-304); Potassium 5.5 MMOL/L (3.5-5.1)
[2020-04-30 07:05] LABS: Lymphocytes 4 % (20-55); Nucleated Red Blood Cells 1 (0-5); Segmented Neutrophils 92 % (50-85)
[2020-04-30 07:06] LABS: Microcytosis Slight; Platelet Estimate Increased; Polychromasia Few
[2020-04-30 07:07] LABS: Total Cells Counted 100
[2020-04-30] MEDS: CLOPIDOGREL 75 MG TABLET PO SCH (09:40)
[2020-04-30] MEDS: AMIODARONE 200 MG TABLET PO SCH (09:40)
[2020-04-30] MEDS: PANTOPRAZOLE 40 MG TABLET PO SCH (09:40)
[2020-04-30] MEDS: ASPIRIN EC 81 MG TABLET PO SCH (09:40)
[2020-04-30] MEDS: ASCORBIC ACID 500 MG TABLET PO SCH (09:40)
[2020-04-30] MEDS: cephALEXin 500 MG CAPSULE PO SCH (09:40)
[2020-04-30] MEDS: SUCRALFATE 1 GM TABLET PO SCH (09:40)
[2020-04-30] MEDS: ENOXAPARIN 30 MG/0.3 ML SYRINGE SUBCUT SCH (09:40)
[2020-04-30 12:31] VITALS: BP 92/63
== END 2020-04-30 16:21 | disposition hospice, home (50) | DRG 640 ==
LOC: N.ED 14:09 → N.EDINP 16:20 → N.TELEN 17:25
PROVIDERS: ADMIT Internal Medicine Cardiovascular Disease; ATTEND Internal Medicine Cardiovascular Disease